=== PATIENT | male | born 1945 | race Caucasian/White ===

== ENCOUNTER → 2019-12-09 08:11 | Outpatient (BNVA) | payer MEDICARE, OTHER, SELFPAY | PROVIDERS: Family Provider Internal Medicine; PCP Internal Medicine; Visit Provider Specialist | DX: G40.909 Epilepsy, unspecified, not intractable, without status epilepticus (principal); G81.11 Spastic hemiplegia affecting right dominant side; Z86.73 Personal history of transient ischemic attack (TIA), and cerebral infarction without residual deficits | CPT/HCPCS: 99213 ==

== ENCOUNTER 2020-04-16 12:49 | Emergency (ER) | payer MEDICARE, OTHER, SELFPAY ==
--- NOTE | 2020-04-16 13:00 | CT_ITS ---
WS: [id number] CT HEAD NONCONTRAST HISTORY: fall TECHNIQUE: Contiguous axial imaging performed through the brain in 2.5 mm imaging. Bone and soft tiss ue windows. All CT scans at [facility] use at least one of these dose optimization techniq ues: automated exposure control; mA and/or kV adjustment per patient size (includes targeted exams wh ere dose is matched to clinical indication); or iterative reconstruction. DLP: 780.34 mGy.cm COMPARISON: 05/16/2018 No acute intracranial hemorrhage, midline shift or mass effect. 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 Marked dilatation of t he adjacent LEFT lateral ventricle. Smaller remote infarct RIGHT frontal lobe. Small basal ganglia la cunar near the caudate head. Ventricles: Marked dilatation of the LEFT lateral ventricle due to the prior infarct. Paranasal sinuses: As visualized are clear. Mastoid air cells: Well pneumatized. Calvarium and scalp: Skull is intact with no soft tissue edema or swelling. CT/CT head wo con* [id number] IMPRESSION: 1. No acute intracranial hemorrhage or edema. 2. 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 3. Smaller chronic infarct RIGHT frontal lobe.
--- NOTE | 2020-04-16 13:00 | CT_ITS ---
WS: [id number] CT CERVICAL SPINE HISTORY: fall TECHNIQUE: Contiguous 2.5 mm axial imaging performed through the entire cervical spine. Sagittal and coronal reformats also performed. All CT scans at [facility] use at least one of these do se optimization techniques: automated exposure control; mA and/or kV adjustment per patient size (inc ludes targeted exams where dose is matched to clinical indication); or iterative reconstruction. DLP: 626.87 mGy.cm COMPARISON: 04/19/2018 Mild straightening of the normal cervical alignment. Minimal C4 anterolisthesis. Craniocervical junct ion is normally aligned. The odontoid is intact. Multilevel moderate to severe facet joint narrowing. No acute fractures are identified. C2-C3: Severe LEFT facet joint arthritis and foraminal narrowing. C3-C4: Severe bilateral facet joint arthritis, greatest on the RIGHT with severe foraminal narrowing. C4-C5: Severe bilateral facet joint arthritis with mild central and bilateral foraminal stenosis. C5-C6: Diffuse osteophytic ridging. Osteophytes contact the ventral thecal sac. Severe RIGHT foramina l stenosis and moderate on the LEFT. C6-C7: Central and mild bilateral foraminal stenosis. C7-T1: Normal. Soft tissues are normal. Lung apices are clear. CT/CT cervical spin wo con* [id number] IMPRESSION: 1. No acute cervical spine fracture. 2. Severe multilevel facet joint arthritis with severe foraminal and central s tenosis at several levels.
--- NOTE | 2020-04-16 13:00 | XR_ITS ---
WS: [id number] XR pelvis 1-2V* [id number] REASON FOR EXAM: fall FINDINGS: Bilaterally there is moderate narrowing of the superior joint space of both hips. There is a more sig nificant narrowing of the inferior joint space of both hips. There is spurring of the superior margin of the acetabula bilaterally. No cortical disruption or focal bone lesion is identified. There are changes of degenerative spondylosis in the lower lumbar spine. 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 No fracture of the pelvis or hi ps is identified.
--- NOTE | 2020-04-16 13:00 | XR_ITS ---
WS: [id number] XR chest 1V portable [id number] REASON FOR EXAM: fall FINDINGS: Moderate ectasia and tortuosity of the thoracic aorta. Normal heart size. No active pulmonary parenchymal or pleural disease. Degenerative change in the mid and lower thoracic spine. The chest is unchanged compared to previous examination of 10/16/2007. XR/XR chest 1V portable [id number] IMPRESSION: No acute chest abnormality.
[2020-04-16 13:01] VITALS: BP 118/71; PULSE 88; RESP 18; TEMP 36.4; O2SAT 96; BMI 27.2
[2020-04-16 13:07] VITALS: O2SAT 96
--- NOTE | 2020-04-16 13:10 | PC.NURSE ---
pt has multiple abrasions and scattered bruising throughout his body. pt has wound to right knee with bleeding controlled.
--- NOTE | 2020-04-16 13:54 | PC.NURSE ---
pt to CT by stretcher with tech
[2020-04-16 14:19] LABS: INR 1.06 (0.8-1.2)
[2020-04-16 14:27] VITALS: BP 120/76; PULSE 90; O2SAT 97
--- NOTE | 2020-04-16 14:29 | ED_ITS ---
HPI - Fall General: Chief Complaint: Fall Stated Complaint: FALL-possible head injury Time Seen by Provider: 04/16/20 12:58 Source: patient Mode of arrival: ambulatory Limitations: no limitations History of Present Illness: HPI Narrative: 74-year-old male who states he had a fall earlier today. He states that he did strike the right side of his head and does have a headache. He has bruises to his chest and his right hip. He denies much pain there states his main pain is in his head neck. He rates pain 5 out of 10. He denies any loss consciousness and denies any vomiting. Denies any worsening or improving factors. Associated symptoms-after fall: Denies abdominal pain, chest pain, headache(s) or neck pain Review of Systems Const: Denies: fever(s), chills, body aches or change in appetite Eyes: Denies: blurry vision or eye discomfort ENMT: Denies: throat pain or dental pain Card: Denies: chest pain Resp: Denies: dyspnea GI: Denies: abdominal pain, nausea, vomiting or diarrhea : Denies: dysuria Musc: Denies: neck pain or back pain Skin/Breast: Denies: rash Neuro: Denies: headache(s) Psych: Denies: depression Her[place]th/Lymph: Denies: easy bruising All/Imm: Denies: urticaria PFSH ED PFSH: Family History Other CAD (coronary artery disease) Stroke Social History Smoking and tobacco status: never smoked Physical Exam Const: COMMON NORMALS: no acute distress, patient oriented x3 and healthy appearing HENMT: COMMON NORMALS: normocephalic HEAD & SCALP: normocephalic OTHER: Contusion noted to forehead. Eye: COMMON NORMALS: Equal, round and reactive pupils present and EOMs intact bilaterally PUPIL: Yes Equal, round and reactive pupils present Neck/C-Spine: COMMON NORMALS: full ROM and supple Chest: COMMONS NORMALS: normal palpation of entire chest wall OTHER: Contusion over chest with no tenderness on exam. Resp: COMMON NORMALS: normal respiratory effort, No retractions, No use of accessory muscles and clear to auscultation bilaterally AUSCULTATION: clear to auscultation bilaterally Cardio: COMMON NORMALS: regular rate, regular rhythm and No murmurs present (Cardio) RATE: regular rate RHYTHM: regular rhythm GI: COMMON NORMALS: Normal to inspection, nondistended, normoactive bowel sounds present, Soft to palpation, non-tender and no masses PALPATION: Yes Soft to palpation Extremity: COMMON NORMALS: normal to inspection and full ROM Neuro: COMMON NORMALS: patient oriented x3, moves all extremities and no focal motor deficits Psych: COMMON NORMALS: mental status grossly normal, Normal thought process present and cooperative THOUGHT PROCESS: Normal thought process present Skin: COMMON NORMALS: no rashes or lesions noted and no wounds GENERAL SKIN EXAM: no rashes or lesions noted Course Vital Signs: Vital signs: Vital Signs Temperature 97.5 F L 04/16/20 13:01 Pulse Rate 90 04/16/20 14:27 Respiratory Rate 18 04/16/20 13:01 Blood Pressure 120/76 04/16/20 14:27 Pulse Oximetry 97 04/16/20 14:27 MDM - Fall MDM Narrative: Medical decision making narrative: Patient presents here with fall with a minor head injury. He does have contusions as well. He has no signs of any fractures and able to be without any problems. Patient is stable for discharge is to follow-up with PCP in 3 to 5 days return if worsening. Lab Data: Labs: Lab Results 04/16/20 Range/Units 13:41 PT 13.90 (12.1-14.9) SECO NDS INR 1.06 (0.8-1.2) Imaging Data^: CT Head: Radiologist's impression: [address] [address] [address] Scan Report Signed Patient: Juan Carlos Canales Unit #: [id number] : 1945 Age/Sex: 74 / M ADM Date: 04/16/20 Loc: ER Room/Bed: Attending Dr: Ordering Provider/Ordering MD: Jacob Andino MD Date of Service: 04/16/20 Procedure(s): CT head wo con* [id number] Accession Number(s): [id number] Report Number: [id number] WS: [id number] CT HEAD NONCONTRAST HISTORY: fall TECHNIQUE: Contiguous axial imaging performed through the brain in 2.5 mm imaging. Bone and soft tissue windows. All CT scans at [facility] use at least one of these dose optimization techniques: automated exposure control; mA and/or kV adjustment per patient size (includes targeted exams where dose is matched to clinical indication); or iterative reconstruction. DLP: 780.34 mGy.cm COMPARISON: 05/16/2018 No acute intracranial hemorrhage, midline shift or mass effect. 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 Marked dilatation of the adjacent LEFT lateral ventricle. Smaller remote infarct RIGHT frontal lobe. Small basal ganglia lacunar near the caudate head. Ventricles: Marked dilatation of the LEFT lateral ventricle due to the prior infarct. Paranasal sinuses: As visualized are clear. Mastoid air cells: Well pneumatized. Calvarium and scalp: Skull is intact with no soft tissue edema or swelling. CT/CT head wo con* [id number] IMPRESSION: 1. No acute intracranial hemorrhage or edema. 2. 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 3. Smaller chronic infarct RIGHT frontal lobe. Other CT: Radiologist's impression: [address] [address] [address] Scan Report Signed Patient: Juan Carlos Canales Unit #: [id number] : 1945 Age/Sex: 74 / M ADM Date: 04/16/20 Loc: ER Room/Bed: Attending Dr: Ordering Provider/Ordering MD: Jacob Andino MD Date of Service: 04/16/20 Procedure(s): CT cervical spin wo con* [id number] Accession Number(s): [id number] Report Number: [id number] WS: [id number] CT CERVICAL SPINE HISTORY: fall TECHNIQUE: Contiguous 2.5 mm axial imaging performed through the entire cervical spine. Sagittal and coronal reformats also performed. All CT scans at [facility] use at least one of these dose optimization techniques: automated exposure control; mA and/or kV adjustment per patient size (includes targeted exams where dose is matched to clinical indication); or iterative reconstruction. DLP: 626.87 mGy.cm COMPARISON: 04/19/2018 Mild straightening of the normal cervical alignment. Minimal C4 anterolisthesis. Craniocervical junction is normally aligned. The odontoid is intact. Multilevel moderate to severe facet joint narrowing. No acute fractures are identified. C2-C3: Severe LEFT facet joint arthritis and foraminal narrowing. C3-C4: Severe bilateral facet joint arthritis, greatest on the RIGHT with severe foraminal narrowing. C4-C5: Severe bilateral facet joint arthritis with mild central and bilateral foraminal stenosis. C5-C6: Diffuse osteophytic ridging. Osteophytes contact the ventral thecal sac. Severe RIGHT foraminal stenosis and moderate on the LEFT. C6-C7: Central and mild bilateral foraminal stenosis. C7-T1: Normal. Soft tissues are normal. Lung apices are clear. CT/CT cervical spin wo con* [id number] IMPRESSION: 1. No acute cervical spine fracture. 2. Severe multilevel facet joint arthritis with severe foraminal and central stenosis at several levels. Xray Ortho: Radiologist's impression: [address] [address] XRay Report Signed Patient: Juan Carlos Canales Unit #: [id number] : 1945 Age/Sex: 74 / M ADM Date: 04/16/20 Loc: ER Room/Bed: Attending Dr: Ordering Provider/Ordering MD: Jacob Andino MD Date of Service: 04/16/20 Procedure(s): XR pelvis 1-2V* [id number] Accession Number(s): [id number] Report Number: [id number] WS: [id number] XR pelvis 1-2V* [id number] REASON FOR EXAM: fall FINDINGS: Bilaterally there is moderate narrowing of the superior joint space of both hips. There is a more significant narrowing of the inferior joint space of both hips. There is spurring of the superior margin of the acetabula bilaterally. No cortical disruption or focal bone lesion is identified. There are changes of degenerative spondylosis in the lower lumbar spine. 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 No fracture of the pelvis or hips is identified. CXR: Radiologist's impression: [address] [address] XRay Report Signed Patient: Juan Carlos Canales Unit #: [id number] : 1945 Age/Sex: 74 / M ADM Date: 04/16/20 Loc: ER Room/Bed: Attending Dr: Ordering Provider/Ordering MD: Jacob Andino MD Date of Service: 04/16/20 Procedure(s): XR chest 1V portable [id number] Accession Number(s): [id number] Report Number: [id number] WS: [id number] XR chest 1V portable [id number] REASON FOR EXAM: fall FINDINGS: Moderate ectasia and tortuosity of the thoracic aorta. Normal heart size. No active pulmonary parenchymal or pleural disease. Degenerative change in the mid and lower thoracic spine. The chest is unchanged compared to previous examination of 10/16/2007. XR/XR chest 1V portable [id number] IMPRESSION: No acute chest abnormality. Discharge Plan Discharge Patient Disposition: Home Clinical Impression: Closed head injury Qualifiers: Encounter type: initial encounter Qualified Code(s): S09.90XA - Unspecified injury of head, initial encounter Fall Qualifiers: Encounter type: initial encounter Qualified Code(s): W19.XXXA - Unspecified fall, initial encounter Condition: Stable Prescriptions: No Action aspirin 325 mg tablet 325 mg PO DAILY RF: 0 multivitamin Capsule 1 cap PO DAILY RF: 0 hydrocodone-acetaminophen [[place]] 5-325 mg tablet 1 tab PO BID PRN (Reason: Pain) RF: 0 amitriptyline 25 mg tablet 25 mg PO DAILY Qty: 90 RF: 1 clopidogrel [Plavix] 75 mg tablet 75 mg PO DAILY Qty: 90 RF: 3 lamotrigine [Lamictal] 200 mg tablet 200 mg PO BID Qty: 180 RF: 3 venlafaxine [Effexor XR] 75 mg capsule,extended release 24hr 75 mg PO DAILY Qty: 90 RF: 3 rosuvastatin 40 mg tablet 40 mg PO DAILY RF: 0 Discharge Orders: Discharge Order (Routine); Ordered 04/16/20 Ordered By: Jacob Andino Referrals: Rich Sotelo DO [Primary Care Provider] - 1-3 days Discharge Diet: Advance as tolerated Discharge Activity: Resume usual activity Patient Instructions: Minor Head Injury (ED) Coding Level of Care Code ED Line Maintainer Section for Sam Smith
[2020-04-16 14:45] VITALS: BP 129/74; PULSE 88; O2SAT 97
--- NOTE | 2020-04-16 14:45 | PC.NURSE ---
wound dressed on right elbow and right knee. dressed with 4*4 's and kerlix.
== END 2020-04-16 14:45 | disposition home or self-care (01) ==
PROVIDERS: Emergency Provider Emergency Medicine; Family Provider Internal Medicine; PCP Internal Medicine
DX: S09.8XXA Other specified injuries of head, initial encounter (principal); Z79.82 Long term (current) use of aspirin; Z79.02 Long term (current) use of antithrombotics/antiplatelets; W19.XXXA Unspecified fall, initial encounter
CPT/HCPCS: 12345; 36415; 70450; 71045; 72125; 72170; 85610; 99282; 99283

== ENCOUNTER 2020-11-08 22:30 | Emergency (ER) | payer MEDICARE, OTHER, SELFPAY ==
[2020-11-08 22:40] VITALS: BP 151/91; PULSE 78; RESP 18; TEMP 36.1; O2SAT 95; BMI 25.8
--- NOTE | 2020-11-08 22:49 | CTR_ITS ---
PROCEDURE INFORMATION: Exam: CT Head Without Contrast Exam date and time: 11/08/2020 10:50 PM Age: 75 years old Clinical indication: Injury or trauma; Blunt trauma (contusions or hematomas) and laceration; Without loss of consciousness; Without residual foreign body; Injury details: H/o subdural and CVA; Patient HX: Walking fall - lac to L scalp - denies loc; Additional info: Head injury TECHNIQUE: Imaging protocol: Computed tomography of the head without contrast. Radiation optimization: All CT scans at this facility use at least one of these dose optimization techniques: automated exposure control; mA and/or kV adjustment per patient size (includes targeted exams where dose is matched to clinical indication); or iterative reconstruction. COMPARISON: CT head wo con* [id number] 04/16/2020 1:54 PM RADIATION DOSE METRICS: Total DLP (mGy-cm): 888.65 FINDINGS: Brain: Large area of encephalomalacia in the left MCA distribution as before. Continued small focus of encephalomalacia in the inferior aspect of the anterior right frontal lobe as well. Slight chronic white matter disease still present. No apparent edema in the brain. No hemorrhage. Cerebral ventricles: Continued negative mass effect on the left lateral ventricle and mild enlargement of the 3rd and right lateral ventricles compared to the normal 4th ventricle. Bones/joints: Unremarkable. No acute fracture. Paranasal sinuses: Continued minimal mucosal thickening in some of the paranasal sinuses. Still no air-fluid levels. Mastoid air cells: Slight inferior right mastoid disease still suspected. Orbital cavity: Prior left eye surgery again evident. Soft tissues: Interval left frontal scalp injury associated with a few small gas bubbles. Interval disappearance of the stranding from the right parietal scalp. CT/CT head wo con* [id number] IMPRESSION: 1. No acute intracranial findings. Chronic ischemic changes again evident. 2. Interval left frontal scalp injury. 3. Slight inferior right mastoid disease still suspected. Radiation Dose CTDIVOL = (mGy): DLP = 888.65 (mGy-cm)
[2020-11-09 00:15] VITALS: BP 166/88; PULSE 63; RESP 18; O2SAT 94
--- NOTE | 2020-11-09 02:47 | W.ED.HEATRA ---
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 He has chronic right-sided weakness. He still takes Plavix. He presents after falling and striking his head on a door at home. This was from a standing position. He was not knocked out. He recovered quickly, and has a minimal headache currently. He does have mild swelling to the scalp and an abrasion to the left frontotemporal region of his head. Bleeding is essentially controlled. He has experienced no symptoms besides a mild headache. Complaint: head injury Onset (ago): minute(s) Mechanism of Injury: fall Place: home Loss of Consciousness: no Location of injury: temporal Severity: moderate Quality: aching Radiation: none Other Injuries: none Context: other Associated symptoms: Deny confusion, nausea, neck pain, numbness, syncope, vertigo, visual changes, vomiting or weakness Review of Systems Const: Denies: fever(s) Eyes: Reports: change in vision (Actually noted an improvement in vision) ENMT: Denies: throat pain or swelling of lips/tongue Card: Denies: chest pain or syncope Resp: Denies: dyspnea GI: Denies: nausea or vomiting Musc: Denies: neck pain Neuro: Denies: vertigo or confusion PFSH ED PFSH: Family History Other CAD (coronary artery disease) Stroke Social History Smoking and tobacco status: never smoked Physical Exam Const: COMMON NORMALS: no acute distress, alert and well nourished GENERAL APPEARANCE: cooperative and frail appearing (mildly) Eye: ALIGNMENT: Yes alignment normal Resp: COMMON NORMALS: normal respiratory effort, No use of accessory muscles and clear to auscultation bilaterally AUSCULTATION: clear to auscultation bilaterally Cardio: COMMON NORMALS: regular rate and regular rhythm RATE: regular rate RHYTHM: regular rhythm GI: COMMON NORMALS: Normal to inspection, nondistended, normoactive bowel sounds present Neuro: SENSORIUM/ORIENTATION: Yes alert SPEECH: abnormal speech (chronic, not new) MOTOR EXAM: Other motor observations present (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 Small scalp laceration repaired with Dermabond. He is at his baseline behavior stall[place], and has minimal to no symptoms of the injury currently. He will be allowed discharge back home with his son. Discharge Plan Discharge Patient Disposition: Home Clinical Impression: Contusion of scalp Qualifiers: Encounter type: initial encounter Qualified Code(s): S00.03XA - Contusion of scalp, initial encounter Laceration of scalp Qualifiers: Encounter type: initial encounter Qualified Code(s): S01.01XA - Laceration without foreign body of scalp, initial encounter Condition: Stable Prescriptions: No Action aspirin 325 mg tablet 325 mg PO DAILY RF: 0 multivitamin Capsule 1 cap PO DAILY RF: 0 hydrocodone-acetaminophen [[place]] 5-325 mg tablet 1 tab PO BID PRN (Reason: Pain) RF: 0 lamotrigine [Lamictal] 200 mg tablet 200 mg PO BID Qty: 180 RF: 3 clopidogrel 75 mg tablet See Rx Instructions .ROUTE .COMPLEX Qty: 90 RF: 2 venlafaxine 75 mg capsule,extended release 24hr See Rx Instructions .ROUTE .COMPLEX Qty: 90 RF: 2 amitriptyline 25 mg tablet See Rx Instructions .ROUTE .COMPLEX Qty: 90 RF: 0 rosuvastatin 40 mg tablet 40 mg PO DAILY RF: 0 Discharge Orders: Discharge ED (Routine); Ordered 11/08/20 Ordered By: Manan Leslie Referrals: Rich Sotelo, [Primary Care Provider] - 4-7 days Patient Instructions: Scalp Laceration, Scalp Contusion in Adults (ED) Activity Restrictions/Additional Instructions: Keep area dry for 24 hours, then may wash with soap and water. Return to the ER for worsening mental status, headache, vomiting, any other concerning symptoms. Coding Level of Care Code ED Culinary Manager for Chg Fwd Exam Problem Focused
== END 2020-11-09 00:15 | disposition home or self-care (01) ==
PROVIDERS: Emergency Provider Emergency Medicine; PCP Internal Medicine
DX: S01.01XA Laceration without foreign body of scalp, initial encounter (principal); S00.03XA Contusion of scalp, initial encounter; Z79.02 Long term (current) use of antithrombotics/antiplatelets; Z79.82 Long term (current) use of aspirin; Z86.73 Personal history of transient ischemic attack (TIA), and cerebral infarction without residual deficits; W18.30XA Fall on same level, unspecified, initial encounter
CPT/HCPCS: 12001; 70450; 99282

== ENCOUNTER → 2020-12-14 08:15 | Outpatient (BNVA) | payer MEDICARE, OTHER, SELFPAY | PROVIDERS: PCP Internal Medicine; Visit Provider Specialist | DX: G40.909 Epilepsy, unspecified, not intractable, without status epilepticus (principal); G40.309 Generalized idiopathic epilepsy and epileptic syndromes, not intractable, without status epilepticus; I69.351 Hemiplegia and hemiparesis following cerebral infarction affecting right dominant side; I69.320 Aphasia following cerebral infarction | CPT/HCPCS: 99213 ==

== ENCOUNTER 2021-11-26 01:11 | Emergency (ER) | payer MEDICARE, OTHER, SELFPAY ==
[2021-11-26] VITALS (10 sets, daily range): BP systolic 163–186; BP diastolic 92–118; PULSE 79–92; RESP 14–19; TEMP 37.1; O2SAT 95–99; BMI 25.8
--- NOTE | 2021-11-26 01:16 | W.ED.FALL ---
HPI - Fall General: Chief Complaint: Fall Stated Complaint: fall Time Seen by Provider: 11/26/21 01:16 History of Present Illness: Mr. Canales is a 76-year-old gentleman with history of seizure disorder, history of stroke, on antiplatelet agents who presents to the emergency department due to fall with head injury and hand surgery. The patient himself has some degree of speech difficulty and so history is mildly limited. Apparently he thinks his rope got caught on something and he fell hitting his head on the wall and his hand on may be a thermostat. Unclear downtime or loss of consciousness. Currently mostly complaining of head pain and hand pain. Moderate intensity worse with movement. No other specific changes in health, exacerbating, or alleviating factors identified. 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 No aguilar signs or raccoon eyes, developing left periorbital ecchymosis. No septal hematoma the right there is swelling to bridge of nose. Eye: COMMON NORMALS: conjunctivae normal CONJUNCTIVA: Yes conjunctivae normal SCLERA: sclerae normal Neck/C-Spine: COMMON NORMALS: supple GENERAL: Yes trachea midline Resp: COMMON NORMALS: normal respiratory effort EFFORT & INSPECTION: Yes able to speak in complete sentences Cardio: COMMON NORMALS: regular rate and regular rhythm RATE: regular rate RHYTHM: regular rhythm GI: COMMON NORMALS: Soft to palpation PALPATION: Yes Soft to palpation, Yes Tenderness to palpation present (GI), No Guarding due to palpation present (GI) and No Rigid due to palpation PERCUSSION: normal to percussion Extremity: NARRATIVE EXTREMITY EXAM: Left hand with obvious deformity to thumb and laceration on the palmar aspect of the MCP. Distal CMS intact. Neuro: COMMON NORMALS: moves all extremities SENSORIUM/ORIENTATION: Yes alert and No Orientation impaired Psych: COMMON NORMALS: mental status grossly normal and Normal thought process present THOUGHT PROCESS: Normal thought process present Procedures Laceration Laceration 1: Site: face Side (If applicable): left Size (cm): 3 Description: linear Depth: simple, single layer Local Anesthetic: lidocaine 2% and with epi Amount of anesthesia used (mL): 6 Pre-repair: wound explored, irrigated extensively and deep structures intact Skin layer closed with: vicryl Size (cm): 4-0 Number of sutures: 3 Laceration 2: Site: hand Side (If applicable): left Size (cm): 2 Description: linear Depth: simple, single layer Local Anesthetic: lidocaine 2% and with epi Amount of anesthesia used (mL): 2 Pre-repair: wound explored and irrigated extensively Skin layer closed with: other (prolene) Size (cm): 3-0 Number of sutures: 3 Technique: simple, interrupted Orthopedic Joint Reduction Joint #1: Time Out Performed: Yes Side: left Joint Reduction Location: other Analgesia: procedural sedation Technique used: traction/counter-traction Post-reduction neuro exam: intact Post-reduction vascular: intact Post Reduction X-Ray Obtained: Yes Post Reduction X-Ray Results: reduced Splint Applied: Yes Procedural Sedation Preparation: monitoring specialist applied, pulse oximeter, supplemental O2 applied, suction/airway equipment at bedside and IV secured IV Propofol dose (mg): 50 Patient Tolerated Procedure: well Complications: none Course ED course: - Patient was seen and evaluated by me at bedside - Patient placed on cardiac monitors, IV access obtained - Initial evaluation notable for exam as above. Limited history as no family at bedside initially. Given patient's questionable reliability and history of stroke as well as age and use of anticoagulation I do feel that more extensive advanced imaging is needed. - Labs and xrays personally interpreted by me -Patient's Tdap up-to-date - Labs notable for no leukocytosis, normal hemoglobin. Electrolyte panel without acute abnormality. Delta troponin negative. - Imaging notable for left proximal first phalanx dislocation. CT imaging without intracranial hemorrhage, cervical spine injury, or acute internal injury of the torso. - Discussed with Dr. Ruiz of hand surgery at [facility] in [place] after discussion with Dr. Jade of our orthopedic surgery service. - Patient consented for procedural sedation and closed reduction. Propofol administered as in procedure note. Patient tolerated procedure well and fully recovered from procedural sedation successfully. Wound loosely closed after copious irrigation. Thumb spica well-padded applied for bracing. - Upon serial reexamination after treatment the patient was improved. Patient certainly had progression of left periorbital ecchymosis during ED stay. - Discussed results of ED evaluation and follow-up plan with hand surgery with the patient and family. - Based on patient history, evaluation, and testing as interpreted the most likely cause of the patient's condition is fall with head injury and laceration x2 including open dislocation of left thumb with successful reduction after procedural sedation. - The results of ED evaluation were discussed with the patient and his family including prescriptions and/or symptomatic cares (if applicable) including appropriate and responsible use, I discussed cautions with opioids extensively, I discussed followup plan, and return precautions. The patient verbalized understanding and felt safe for discharge. - Patient discharged in satisfactory condition. Note: Click bubbles or prepopulated cerna in note writing are used for assistance with data collection and billing and are inherently more limited than narrative and other text portions of this note. Please use narrative for additional clinical history and defer to narrative/free test for any case of contradictory information. If information appears in only free text or click bubble it should be considered present or absent as reported. Please contact note screenplay writer for clarifications of clinical information or contradictory information. MDM is a brief summary, contradictory or erroneous seeming information should be clarified and full note should be reviewed. Vital Signs: Vital signs: Vital Signs Temperature 98.7 F 11/26/21 01:17 Pulse Rate 92 11/26/21 06:06 Respiratory Rate 17 11/26/21 06:06 Blood Pressure 163/100 11/26/21 06:06 Pulse Oximetry 97 11/26/21 06:06 MDM - Fall Medical Decision Making 76-year-old gentleman with history of stroke on aspirin and Plavix presenting due to fall with head injury and hand injury. Laceration on left eyebrow region repaired with 3 sutures. Procedural sedation for open dislocation reduction of left thumb. Post reduction CMS intact. CT scans negative for other acute trauma. Patient satisfactory for discharge. He did receive a dose of Ancef while in the emergency department and plan to continue outpatient on Keflex with follow-up with hand surgery Dr. Ruiz in [place]. Satisfactory for outpatient management, patient does live with family and can be watched closely. Medical Records I reviewed the patient's medical records. Lab Data I reviewed the patient's lab results. : 11/26/21 00:58 11/26/21 00:58 Radiology Impressions Cervical Spine CT 11/26/21 01:20 IMPRESSION: 1. No definite acute fracture or subluxation by CT. 2. Other findings discussed above. Chest/Abdomen/Pelvis CT 11/26/21 01:20 IMPRESSION: 1. No acute pathology in the chest. 2. Ectatic ascending aorta. IMPRESSION: 1. No acute pathology in the abdomen or pelvis. 2. Ectatic infrarenal abdominal aorta. Head CT 11/26/21 01:20 IMPRESSION: 1. No acute intracranial hemorrhage or mass effect. 2. Changes of microvascular disease, and old infarcts, details above. 3. No definite acute infarct by CT, see above. 4. Other findings discussed above. Hand X-Ray 11/26/21 05:27 IMPRESSION: Successful reduction of left thumb dislocation. No fracture identified. Laboratory Results WBC 7.8 10^3/uL (4.0-10.0) 11/26/21 00:58 RBC 5.30 10^6/uL (4.1-5.3) 11/26/21 00:58 Hgb 16.6 g/dL (11.7-16.6) 11/26/21 00:58 Hct 50.7 % (42.0-52.0) 11/26/21 00:58 MCV 95.7 fl (80-94) H 11/26/21 00:58 MCH 31.3 pg (28.0-34.0) 11/26/21 00:58 MCHC 32.7 g/dL (30.0-36.0) 11/26/21 00:58 RDW 12.7 % (12.1-15.1) 11/26/21 00:58 Plt Count 229 10^3/cmm (130-400) 11/26/21 00:58 MPV 9.6 fL (7.4-10.4) 11/26/21 00:58 Neut % (Auto) 37.6 % 11/26/21 00:58 Lymph % (Auto) 49.4 % 11/26/21 00:58 [place] % (Auto) 10.0 % 11/26/21 00:58 Eos % (Auto) 2.3 % 11/26/21 00:58 Baso % (Auto) 0.4 % 11/26/21 00:58 Neut # (Auto) 2.95 10^3/uL (1.8-7.7) 11/26/21 00:58 Lymph # (Auto) 3.9 10^3/uL (0.8-4.8) 11/26/21 00:58 [place] # (Auto) 0.8 10^3/uL (0.2-0.9) 11/26/21 00:58 Eos # (Auto) 0.2 10^3/uL (0.0-0.8) 11/26/21 00:58 Baso # (Auto) 0.0 10^3/uL (0.0-0.1) 11/26/21 00:58 Nucleated RBC % (auto) 0 % 11/26/21 00:58 Nucleated RBCs # 0.0 /100WBC 11/26/21 00:58 Sodium 139 mmol/L (136-145) 11/26/21 00:58 Potassium 3.5 mmol/L (3.5-5.1) 11/26/21 00:58 Chloride 99 mmol/L (98-107) 11/26/21 00:58 Carbon Dioxide 28 mmol/L (22-29) 11/26/21 00:58 Anion Gap 15.5 (5-19) 11/26/21 00:58 BUN 16 mg/dL (8-23) 11/26/21 00:58 Creatinine 0.9 mg/dL (0.7-1.2) 11/26/21 00:58 GFR Calculation Not Reportable 11/26/21 00:58 Glucose 68 mg/dL (65-115) 11/26/21 00:58 Calculated Osmolality 287 mOsm/kg (285-295) 11/26/21 00:58 Calcium 9.8 mg/dL (8.5-10.5) 11/26/21 00:58 Total Bilirubin 0.5 mg/dL (0.15-1.2) 11/26/21 00:58 AST 31 U/L (0-40) 11/26/21 00:58 ALT 23 U/L (0-41) 11/26/21 00:58 Alkaline Phosphatase 103 IU/L (40-130) 11/26/21 00:58 Troponin T Baseline 27 ng/L (0-15) H 11/26/21 00:58 Troponin T 120 Minute 25.70 ng/L (0-15) H 11/26/21 02:49 Delta Troponin T -1.30 ABS# (0-10) L 11/26/21 02:49 Total Protein 8.1 g/dL (6.6-8.7) 11/26/21 00:58 Albumin 5.0 g/dL (3.5-5.2) 11/26/21 00:58 Globulin 3.1 g/dL (1.3-4.6) 11/26/21 00:58 Discharge Plan Discharge Patient Disposition: Home Clinical Impression: Fall, Head injuries, Facial laceration, Open dislocation of left thumb Condition: Stable Prescriptions: New oxycodone 5 mg tablet 5 mg PO Q6H PRN (Reason: pain) Qty: 14 0RF cephalexin 500 mg tablet 500 mg PO Q6H 10 Days Qty: 40 0RF Miralax 17 gram/dose powder 17 g PO DAILY Qty: 119 0RF Rx Instructions: While taking opioids (oxycodone) No Action aspirin 325 mg tablet 325 mg PO DAILY 0RF multivitamin Capsule 1 cap PO DAILY 0RF hydrocodone-acetaminophen [[place]] 5-325 mg tablet 1 tab PO BID PRN (Reason: Pain) 0RF amitriptyline 25 mg tablet See Rx Instructions .ROUTE .COMPLEX Qty: 90 3RF Dose Instruction: TAKE 1 TABLET BY MOUTH EVERY DAY Rx Instructions: TAKE 1 TABLET BY MOUTH EVERY DAY clopidogrel 75 mg tablet 75 mg PO DAILY Qty: 30 10RF Rx Instructions: Must have appointment for future refills. lamotrigine 200 mg tablet See Rx Instructions .ROUTE .COMPLEX Qty: 180 0RF Dose Instruction: TAKE 1 TABLET BY MOUTH TWICE DAILY Rx Instructions: TAKE 1 TABLET BY MOUTH TWICE DAILY venlafaxine 75 mg capsule,extended release 24hr See Rx Instructions .ROUTE .COMPLEX Qty: 30 0RF Dose Instruction: TAKE 1 CAPSULE BY MOUTH EVERY DAY MUST MAKE APPOINTMENT FOR FUTURE REFILLS Rx Instructions: TAKE 1 CAPSULE BY MOUTH EVERY DAY MUST MAKE APPOINTMENT FOR FUTURE REFILLS rosuvastatin 40 mg tablet 40 mg PO DAILY 0RF Discharge Orders: Discharge ED (Routine); Ordered 11/26/21 Ordered By: Jose Rafael Westbrook Referrals: Rich Sotelo, [Primary Care Provider] - Discharge Diet: Usual diet Discharge Activity: Increase activity as tolerated Patient Instructions: Care For Your Stitches (ED), Laceration (ED), Head Injury (ED), Procedural Sedation (ED), Finger Dislocation (ED), Opioid Safety Activity Restrictions/Additional Instructions: Thank you for visiting the emergency department. You were seen evaluated for fall. You were noted to have multiple injuries including a facial laceration and significant contusion. This was repaired with sutures that need to be removed in 7 to 10 days. You may return to this emergency department for removal or follow-up with your primary care provider. Additionally you were found to have dorsal lateral dislocation of the first MCP joint which was reduced with procedural sedation. There is a laceration of the skin concerning for open joint dislocation and therefore you require follow-up with orthopedic hand surgery. You will be also continued on antibiotics. I spoke with Dr. Ruiz. He is affiliated with [facility]. Please call to schedule follow-up appointment. Please return to the emergency department for anything that you are concerned about and feel needs emergency department evaluation. 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
--- NOTE | 2021-11-26 01:20 | CTR_ITS ---
PROCEDURE INFORMATION: Exam: CT Head Without Contrast Exam date and time: 11/26/2021 2:27 AM Age: 76 years old Clinical indication: Injury or trauma; Fall; Blunt trauma (contusions or hematomas) and laceration; Without residual foreign body; Forehead; Patient HX: Patient fell at home and hit head against thermostat. Laceration to left eyebrow. History of left side stroke. Takes plavix. TECHNIQUE: Imaging protocol: Computed tomography of the head without contrast. Radiation optimization: All CT scans at this facility use at least one of these dose optimization techniques: automated exposure control; mA and/or kV adjustment per patient size (includes targeted exams where dose is matched to clinical indication); or iterative reconstruction. COMPARISON: CT head wo con* [id number] 11/08/2020 11:09 PM RADIATION DOSE METRICS: Total DLP (mGy-cm): 887.18 FINDINGS: Brain: No acute intracranial hemorrhage or mass effect. There is decreased attenuation in the periventricular white matter, likely from microvascular disease. As before, large old infarct in the left middle cerebral artery distribution. Small old infarct in the lateral right frontal lobe, unchanged. No definite acute infarct by CT. MRI could be more sensitive/specific for detection, as clinically directed. Cerebral ventricles: Ex vacuo enlargement of the left lateral ventricle, stable. Ventricle size is otherwise normal for age. Paranasal sinuses: Included paranasal sinuses are essentially clear. Mastoid air cells: No significant acute finding. Vasculature: Vascular calcifications in the internal carotid and vertebral basilar systems. Bones/joints: No definite acute skull fracture. Soft tissues: Evidence for soft tissue injury/scalp hematoma in the left frontal/supraorbital region. CT/CT head wo con* [id number] IMPRESSION: 1. No acute intracranial hemorrhage or mass effect. 2. Changes of microvascular disease, and old infarcts, details above. 3. No definite acute infarct by CT, see above. 4. Other findings discussed above.
--- NOTE | 2021-11-26 01:20 | CTR_ITS ---
PROCEDURE INFORMATION: Exam: CT Cervical Spine Without Contrast Exam date and time: 11/26/2021 2:30 AM Age: 76 years old Clinical indication: Injury or trauma; Fall; Blunt trauma; Patient HX: Patient fell at home and struck head against thermostat. TECHNIQUE: Imaging protocol: Computed tomography images of the cervical spine without contrast. Radiation optimization: All CT scans at this facility use at least one of these dose optimization techniques: automated exposure control; mA and/or kV adjustment per patient size (includes targeted exams where dose is matched to clinical indication); or iterative reconstruction. COMPARISON: CT cervical spin wo con* [id number] 04/16/2020 1:57 PM RADIATION DOSE METRICS: Total DLP (mGy-cm): 548.68 FINDINGS: Bones/joints: On axial CT images, no definite acute fracture is visible. Sagittal and coronal reconstructions show no acute fracture or subluxation. Moderate to severe facet joint arthritis at multiple levels. Discs/Spinal canal/Neural foramina: Mild to moderate degenerative disc changes at several levels. No definite/significant disc herniation by CT, MRI could be more sensitive if clinically indicated. Lungs: No significant acute finding in the upper lungs. CT/CT cervical spin wo con* [id number] IMPRESSION: 1. No definite acute fracture or subluxation by CT. 2. Other findings discussed above.
--- NOTE | 2021-11-26 01:20 | XRR_ITS ---
PROCEDURE INFORMATION: Exam: XR Left Hand Exam date and time: 11/26/2021 1:44 AM Age: 76 years old Clinical indication: Injury or trauma; Fall; Dislocation; Left; Patient HX: Patient fell at home against a wall and hit hand on thermostat. Thumb appears dislocated with open fracture on anterior side of hand. TECHNIQUE: Imaging protocol: XR Left hand. Views: 3 or more views. COMPARISON: No relevant prior studies available. FINDINGS: Bones/joints: There is dorsolateral dislocation of the 1st MCP joint. No fracture identified. There is moderate degenerative changes of the 1st CMC joint, manifested by joint space narrowing subchondral sclerosis and periarticular osteophytes. Soft tissues: Normal. XR/XR hand LT min 3V* [id number] IMPRESSION: Left thumb dislocation, as described above.
--- NOTE | 2021-11-26 01:20 | CTR_ITS ---
PROCEDURE INFORMATION: Exam: CT Chest Without Contrast; Diagnostic Exam date and time: 11/26/2021 2:34 AM Age: 76 years old Clinical indication: Injury or trauma; Fall; Generalized; Blunt trauma (contusions or hematomas); Patient HX: Patient fell at home and struck head against thermostat. Takes plavix due to prior stroke. Denies any pain to torso though patient is somewhat limited historian. TECHNIQUE: Imaging protocol: Diagnostic computed tomography of the chest without contrast. Radiation optimization: All CT scans at this facility use at least one of these dose optimization techniques: automated exposure control; mA and/or kV adjustment per patient size (includes targeted exams where dose is matched to clinical indication); or iterative reconstruction. COMPARISON: CR XR chest 1V portable [id number] 04/16/2020 1:22 PM RADIATION DOSE METRICS: Total DLP (mGy-cm): 2605.31 FINDINGS: Lungs: No consolidation. Bilateral dependent atelectasis noted. Tiny calcified granulomas are seen bilaterally. Pleural spaces: Unremarkable. No pneumothorax. No pleural effusion. Heart: Mildly enlarged heart. Coronary atherosclerotic calcifications seen. No pericardial effusion. Lymph nodes: There is a small calcified lymph nodes in the right hilar region, likely sequela of previous granulomatous disease. Vasculature: Mild diffuse atherosclerotic disease is present. Ectatic ascending aorta measuring 4.0 cm in diameter. Bones/joints: Degenerative changes of the spine seen. Surgical changes in the left proximal humerus noted. Soft tissues: Unremarkable. PROCEDURE INFORMATION: Exam: CT Abdomen And Pelvis Without Contrast Exam date and time: 11/26/2021 2:34 AM Age: 76 years old Clinical indication: Injury or trauma; Fall; Generalized; Blunt trauma (contusions or hematomas); Patient HX: Patient fell at home and struck head against thermostat. Takes plavix due to prior stroke. Denies any pain to torso though patient is somewhat limited historian. TECHNIQUE: Imaging protocol: Computed tomography of the abdomen and pelvis without contrast. Radiation optimization: All CT scans at this facility use at least one of these dose optimization techniques: automated exposure control; mA and/or kV adjustment per patient size (includes targeted exams where dose is matched to clinical indication); or iterative reconstruction. COMPARISON: CR XR pelvis 1-2V* [id number] 04/16/2020 1:22 PM RADIATION DOSE METRICS: Total DLP (mGy-cm): 2605.31 FINDINGS: Liver: Normal. No mass. Gallbladder and bile ducts: Normal. No calcified stones. No ductal dilation. Pancreas: Normal. No ductal dilation. Spleen: There is tiny calcific densities scattered throughout the spleen, likely sequela of previous granulomatous disease. The spleen is otherwise unremarkable. Adrenal glands: Normal. No mass. Kidneys and ureters: Normal. No hydronephrosis. Stomach and bowel: Unremarkable. No obstruction. No mucosal thickening. Appendix: No evidence of appendicitis. Intraperitoneal space: Unremarkable. No free air. No significant fluid collection. Vasculature: Moderate diffuse atherosclerotic disease is present. Ectatic infrarenal abdominal aorta measuring up to 3.3 cm in diameter. Lymph nodes: Unremarkable. No enlarged lymph nodes. Urinary bladder: Unremarkable as visualized. Reproductive: The prostate is enlarged. Bones/joints: Degenerative changes of the spine seen. Is mild degenerative changes of the hip joints seen. Soft tissues: Unremarkable. CT/CT chest abd pel wo con IMPRESSION: 1. No acute pathology in the chest. 2. Ectatic ascending aorta. IMPRESSION: 1. No acute pathology in the abdomen or pelvis. 2. Ectatic infrarenal abdominal aorta.
--- NOTE | 2021-11-26 01:21 | ECG_ITS ---
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 Measurements Intervals [place] Rate: 83 P: 45 [place]: 180 QRS: 28 QRSD: 92 T: 76 QT: 372 QTc: 437 Interpretive Statements SINUS RHYTHM No previous ECG available for comparison Electronically Signed On 11-26-2021 16:21:21 CDT by Sejal Gibson M.D. [email or web address]
[2021-11-26 01:35] LABS: Basophils % 0.4 %; Eosinophils # 0.2 10^3/uL (0.0-0.8); Eosinophils % 2.3 %; Hematocrit 50.7 % (42.0-52.0); Hemoglobin 16.6 g/dL (11.7-16.6); Lymphocytes # 3.9 10^3/uL (0.8-4.8); Lymphocytes % 49.4 %; Mean Corpuscular HGB Conc 32.7 g/dL (30.0-36.0); Mean Corpuscular Hemoglobin 31.3 pg (28.0-34.0); Mean Corpuscular Volume 95.7 fl (80-94); Mean Platelet Volume 9.6 fL (7.4-10.4); Monocytes # 0.8 10^3/uL (0.2-0.9); Neutrophils # 2.95 10^3/uL (1.8-7.7); Neutrophils % 37.6 %; Nucleated Red Blood Cells % 0 %; Platelet Count 229 10^3/cmm (130-400); Red Cell Distribution Width 12.7 % (12.1-15.1); White Blood Count 7.8 10^3/uL (4.0-10.0)
[2021-11-26 01:53] LABS: Alanine Aminotransferase 23 U/L (0-41); Alkaline Phosphatase 103 IU/L (40-130); Anion Gap 15.5 (5-19); Aspartate Amino Transferase 31 U/L (0-40); Blood Urea Nitrogen 16 mg/dL (8-23); Calcium 9.8 mg/dL (8.5-10.5); Carbon Dioxide 28 mmol/L (22-29); Chloride 99 mmol/L (98-107); Creatinine Clr Calc Pharmacy 74.3349; Globulin 3.1 g/dL (1.3-4.6); Glucose 68 mg/dL (65-115); Osmolality Calculated 287 mOsm/kg (285-295); Potassium 3.5 mmol/L (3.5-5.1); Sodium 139 mmol/L (136-145); Total Bilirubin 0.5 mg/dL (0.15-1.2); Total Protein 8.1 g/dL (6.6-8.7)
[2021-11-26 01:54] LABS: Troponin(5th) Baseline 27 ng/L (0-15)
[2021-11-26] MEDS: morphine 4 mg/mL SDV 1 mL IVP (02:15)
[2021-11-26] MEDS: sodium chloride 0.9% 1,000 ML 30 ML IV (04:47)
[2021-11-26] MEDS: propofol 10 mg/mL SDV 20 mL IVP (05:20)
--- NOTE | 2021-11-26 05:27 | XRR_ITS ---
PROCEDURE INFORMATION: Exam: XR Left Hand Exam date and time: 11/26/2021 5:28 AM Age: 76 years old Clinical indication: Injury or trauma; Fall; Dislocation; Finger; Left; Thumb; Patient HX: Check S/P reduction; Additional info: Post reduction TECHNIQUE: Imaging protocol: XR Left hand. Views: 3 or more views. COMPARISON: CR (UP EX, ) 11/26/2021 1:44 AM FINDINGS: Bones/joints: Interval successful reduction of left thumb dislocation. No fracture identified. Soft tissues: Swelling of the thumb soft tissues is present. XR/XR hand LT 2V [id number] IMPRESSION: Successful reduction of left thumb dislocation. No fracture identified.
== END 2021-11-26 08:07 | disposition home or self-care (01) ==
PROVIDERS: Emergency Provider Emergency Medicine; PCP Internal Medicine
DX: S01.112A Laceration without foreign body of left eyelid and periocular area, initial encounter (principal); S61.412A Laceration without foreign body of left hand, initial encounter; S63.115A Dislocation of metacarpophalangeal joint of left thumb, initial encounter; W01.198A Fall on same level from slipping, tripping and stumbling with subsequent striking against other object, initial encounter; I69.320 Aphasia following cerebral infarction; G40.409 Other generalized epilepsy and epileptic syndromes, not intractable, without status epilepticus; Z79.02 Long term (current) use of antithrombotics/antiplatelets
CPT/HCPCS: 12001; 12013; 26700; 70450; 71250; 72125; 73120; 73130; 74176; 80053; 84484; 85025; 93005; 96365; 96375; 99152; 99285; J0690; J2270; J2704; J7030

== ENCOUNTER 2022-02-01 05:28 | Emergency (ER) | payer MEDICARE, OTHER, SELFPAY ==
--- NOTE | 2022-02-01 05:28 | XRR_ITS ---
PROCEDURE INFORMATION: Exam: XR Right Ankle Exam date and time: 02/01/2022 5:42 AM Age: 76 years old Clinical indication: Patient HX: Fell this am pain to ankle; Additional info: Injury TECHNIQUE: Imaging protocol: Radiologic exam of the Right ankle. Views: 3 or more views. COMPARISON: No relevant prior studies available. FINDINGS: Bones/joints: Displaced distal fibular fracture with overlying soft tissue edema. Soft tissues: See Bones/joints finding. XR/XR ankle RT min 3V* [id number] IMPRESSION: Displaced distal fibular fracture with overlying soft tissue edema.
[2022-02-01 05:30] VITALS: BP 144/11; PULSE 74; RESP 17; TEMP 36.6; O2SAT 98; BMI 24.3
--- NOTE | 2022-02-01 05:34 | W.ED.FALL ---
HPI - Fall General: Chief Complaint: Fall Stated Complaint: FALL Time Seen by Provider: 02/01/22 05:28 Source: patient and EMS Mode of arrival: EMS Limitations: altered mental status History of Present Illness: 76-year-old male has a history of dementia who is here after a fall. Per EMS patient had fell unwitnessed but son and found him patient does not remember exactly what happened due to his dementia he does have swelling along with pain to his right ankle he has not been able to bear weight on that ankle. He denies pain elsewhere he has no other signs of injuries at this time. He rates his pain a 5 out of 10. Associated symptoms-after fall: Denies abdominal pain, chest pain or headache(s) Review of Systems Const: Denies: fever(s), chills, body aches or change in appetite Eyes: Denies: blurry vision or eye discomfort ENMT: Denies: throat pain or dental pain Card: Denies: chest pain Resp: Denies: dyspnea GI: Denies: abdominal pain, nausea, vomiting or diarrhea : Denies: dysuria Musc: Reports: extremity pain Skin/Breast: Denies: rash Neuro: Denies: headache(s) Psych: Denies: depression Herberth/Lymph: Denies: easy bruising All/Imm: Denies: urticaria PFSH ED PFSH: Medical History Aphasia as late effect of stroke CVA (cerebral vascular accident) 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 Family History Other CAD (coronary artery disease) Stroke Social History Smoking and tobacco status: never smoked Physical Exam Const: COMMON NORMALS: no acute distress, healthy appearing and alert; negative for patient oriented x3 ORIENTATION/CONSCIOUSNESS: Yes oriented to person and Yes oriented to place; not oriented to time HENMT: COMMON NORMALS: normocephalic and atraumatic HEAD & SCALP: normocephalic and atraumatic Eye: COMMON NORMALS: Equal, round and reactive pupils present and EOMs intact bilaterally PUPIL: Yes Equal, round and reactive pupils present Neck/C-Spine: COMMON NORMALS: full ROM and supple Chest: COMMONS NORMALS: normal inspection of the chest and normal palpation of entire chest wall Resp: COMMON NORMALS: normal respiratory effort, No retractions, No use of accessory muscles and clear to auscultation bilaterally AUSCULTATION: clear to auscultation bilaterally Cardio: COMMON NORMALS: regular rate, regular rhythm and No murmurs present (Cardio) RATE: regular rate RHYTHM: regular rhythm GI: COMMON NORMALS: Normal to inspection, nondistended, normoactive bowel sounds present, Soft to palpation, non-tender and no masses PALPATION: Yes Soft to palpation Extremity: NARRATIVE EXTREMITY EXAM: Swelling along with tenderness to right ankle distal pulses intact no knee pain or hip pain Neuro: COMMON NORMALS: moves all extremities and no focal motor deficits; negative for patient oriented x3 SENSORIUM/ORIENTATION: Yes alert, Yes oriented to person, Yes oriented to place and No oriented to time Psych: COMMON NORMALS: mental status grossly normal, Normal thought process present and cooperative THOUGHT PROCESS: Normal thought process present Skin: COMMON NORMALS: no rashes or lesions noted and no wounds GENERAL SKIN EXAM: no rashes or lesions noted Course Vital Signs: Vital signs: Vital Signs Temperature 97.9 F 02/01/22 05:30 Pulse Rate 74 02/01/22 06:38 Respiratory Rate 18 02/01/22 06:38 Blood Pressure 150/75 02/01/22 06:38 Pulse Oximetry 95 02/01/22 06:38 MDM - Fall Medical Decision Making Patient presents here with a distal fibular fracture from a fall he has no other signs of injury patient placed in a splint and is to follow-up with orthopedics he is return if worsening understand agree to plan. Lab Data Radiology Impressions Ankle X-Ray 02/01/22 05:28 IMPRESSION: Displaced distal fibular fracture with overlying soft tissue edema. Discharge Plan Discharge Patient Disposition: Home Clinical Impression: Ankle fracture, right Qualifiers: Encounter type: initial encounter Fracture type: closed Qualified Code(s): S82.891A - Other fracture of right lower leg, initial encounter for closed fracture Condition: Stable Prescriptions: New hydrocodone-acetaminophen 5-325 mg tablet 1 tab PO Q6H PRN (Reason: pain) Qty: 14 0RF No Action aspirin 325 mg tablet 325 mg PO DAILY 0RF multivitamin Capsule 1 cap PO DAILY 0RF hydrocodone-acetaminophen [[place]] 5-325 mg tablet 1 tab PO BID PRN (Reason: Pain) 0RF amitriptyline 25 mg tablet See Rx Instructions .ROUTE .COMPLEX Qty: 90 3RF Dose Instruction: TAKE 1 TABLET BY MOUTH EVERY DAY Rx Instructions: TAKE 1 TABLET BY MOUTH EVERY DAY venlafaxine 75 mg capsule,extended release 24hr See Rx Instructions .ROUTE .COMPLEX Qty: 30 0RF Dose Instruction: TAKE 1 CAPSULE BY MOUTH EVERY DAY MUST MAKE APPOINTMENT FOR FUTURE REFILLS Rx Instructions: TAKE 1 CAPSULE BY MOUTH EVERY DAY MUST MAKE APPOINTMENT FOR FUTURE REFILLS clopidogrel 75 mg tablet See Rx Instructions .ROUTE .COMPLEX Qty: 30 1RF Dose Instruction: TAKE 1 TABLET BY MOUTH EVERY DAY *need TO see doctor* Rx Instructions: TAKE 1 TABLET BY MOUTH EVERY DAY *need TO see doctor* lamotrigine [Subvenite] 200 mg tablet See Rx Instructions .ROUTE .COMPLEX Qty: 180 0RF Dose Instruction: TAKE 1 TABLET BY MOUTH TWICE DAILY Rx Instructions: TAKE 1 TABLET BY MOUTH TWICE DAILY rosuvastatin 40 mg tablet 40 mg PO DAILY 0RF oxycodone 5 mg tablet 5 mg PO Q6H PRN (Reason: pain) Qty: 14 0RF Miralax 17 gram/dose powder 17 g PO DAILY Qty: 119 0RF Rx Instructions: While taking opioids (oxycodone) Discharge Orders: Discharge ED (Routine); Ordered 02/01/22 Ordered By: Jacob Andino Other Ambulatory Orders: DME: Wheelchair (Order) Location: None Selected Ordered By: Jacob Andino Referrals: Oscar Harley MD [Physician] - 1-3 days Rich Sotelo DO [Primary Care Provider] - Discharge Diet: Advance as tolerated Discharge Activity: Resume usual activity Patient Instructions: Ankle Fracture (ED), Opioid Safety Coding Level of Care Code ED Certified Surgical Tech/First Assistant for Chg Fwd Exam Comprehensive
[2022-02-01] MEDS: HYDROcodone-acetaminophen 5-325 mg Tablet 1 TAB PO (05:59)
[2022-02-01 06:38] VITALS: BP 150/75; PULSE 74; RESP 18; O2SAT 95
--- NOTE | 2022-02-01 07:37 | DCPLANNER ---
Addendum entered by Madison Loyola 03/02/22 11:51: Patient had a follow up appointment scheduled for 02.02.22 with ortho - patient did attend appointment. Addendum entered by Madison Loyola 02/02/22 14:09: Patient has a follow up appointment scheduled for Wednesday February 02, 2022 at 3:[address] Harley at ortho. Clinic will call patient with appointment information. Original Note: restaurant manager had message to schedule a follow up appointment for patient with ortho. restaurant manager sent patients information to the front office staff at ortho. Patients information will be printed and reviewed. Clinic will call patient with appointment information.
== END 2022-02-01 06:39 | disposition home or self-care (01) ==
PROVIDERS: Emergency Provider Emergency Medicine; PCP Internal Medicine
DX: S82.831A Other fracture of upper and lower end of right fibula, initial encounter for closed fracture (principal); Z79.82 Long term (current) use of aspirin; Z79.02 Long term (current) use of antithrombotics/antiplatelets; Z86.73 Personal history of transient ischemic attack (TIA), and cerebral infarction without residual deficits; F03.90 Unspecified dementia, unspecified severity, without behavioral disturbance, psychotic disturbance, mood disturbance, and anxiety; W19.XXXA Unspecified fall, initial encounter
CPT/HCPCS: 29515; 73610; 99283

== ENCOUNTER → 2022-02-02 15:27 | Outpatient (BNVA) | payer MEDICARE, OTHER, SELFPAY | PROVIDERS: PCP Internal Medicine; Visit Provider Orthopaedic Surgery | DX: X58.XXXA Exposure to other specified factors, initial encounter (principal); S82.831A Other fracture of upper and lower end of right fibula, initial encounter for closed fracture | CPT/HCPCS: 27786; 99203 ==

== ENCOUNTER 2022-02-19 08:11 | Emergency (ER) | payer MEDICARE, OTHER, SELFPAY ==
--- NOTE | 2022-02-19 08:14 | CTR_ITS ---
PROCEDURE INFORMATION: Exam: CT Cervical Spine Without Contrast Exam date and time: 02/19/2022 8:31 AM Age: 76 years old Clinical indication: Injury or trauma; Fall; Blunt trauma TECHNIQUE: Imaging protocol: Computed tomography of the cervical spine without contrast. Radiation optimization: All CT scans at this facility use at least one of these dose optimization techniques: automated exposure control; mA and/or kV adjustment per patient size (includes targeted exams where dose is matched to clinical indication); or iterative reconstruction. COMPARISON: CT cervical spin wo con* [id number] 11/26/2021 2:30 AM RADIATION DOSE METRICS: Total DLP (mGy-cm): 259.9 FINDINGS: Bones/joints: No acute fracture. Normal alignment. Discs/Spinal canal/Neural foramina: Chronic degenerative changes are present with disc space narrowing sclerosis and vertebral body osteophytes especially at the C5-C6 and C6-C7 levels. There is moderate spinal stenosis and left neural foraminal narrowing at these levels. Is bilateral facet joint degenerative disease. No severe spinal canal stenosis. Lungs: Lung apices are normal. Vasculature: Bilateral carotid artery calcification. Soft tissues: Unremarkable. CT/CT cervical spin wo con* [id number] IMPRESSION: 1. No acute abnormality. 2. Chronic degenerative disease especially at C5-C6 and C6-C7.
--- NOTE | 2022-02-19 08:14 | CTR_ITS ---
PROCEDURE INFORMATION: Exam: CT Maxillofacial Without Contrast Exam date and time: 02/19/2022 8:31 AM Age: 76 years old Clinical indication: Injury or trauma; Fall; Blunt trauma (contusions or hematomas); Nose TECHNIQUE: Imaging protocol: Computed tomography of the of the face without contrast. Radiation optimization: All CT scans at this facility use at least one of these dose optimization techniques: automated exposure control; mA and/or kV adjustment per patient size (includes targeted exams where dose is matched to clinical indication); or iterative reconstruction. COMPARISON: CT head wo con* [id number] 11/26/2021 2:27 AM RADIATION DOSE METRICS: Total DLP (mGy-cm): 669 FINDINGS: Orbital cavities: Orbits are normal. Globes are unremarkable. Bones/joints: There is a fracture of the distal nasal bone with about 2 mm of depression. A nondisplaced fracture is present at the tip of the maxillary spine. Paranasal sinuses: Normal. No air-fluid levels. Soft tissues: There is a small subcutaneous hematoma with subcutaneous emphysema over the frontal bone. CT/CT facial bones wo con* [id number] IMPRESSION: Mildly displaced fracture of the distal nasal bone and nondisplaced chip fracture of the anterior maxillary spine.
--- NOTE | 2022-02-19 08:14 | CTR_ITS ---
PROCEDURE INFORMATION: Exam: CT Head Without Contrast Exam date and time: 02/19/2022 8:31 AM Age: 76 years old Clinical indication: Injury or trauma; Fall; Blunt trauma (contusions or hematomas); Patient HX: History of stroke TECHNIQUE: Imaging protocol: Computed tomography of the head without contrast. Radiation optimization: All CT scans at this facility use at least one of these dose optimization techniques: automated exposure control; mA and/or kV adjustment per patient size (includes targeted exams where dose is matched to clinical indication); or iterative reconstruction. COMPARISON: CT head wo con* [id number] 11/26/2021 2:27 AM RADIATION DOSE METRICS: Total DLP (mGy-cm): 1161.3 FINDINGS: Brain: See Vasculature finding. Cerebral ventricles: See Vasculature finding. Paranasal sinuses: Visualized sinuses are unremarkable. No fluid levels. Mastoid air cells: Visualized mastoid air cells are well aerated. Bones/joints: Unremarkable. No acute fracture. Soft tissues: See Vasculature finding. Vasculature: There is a large old infarct in the distribution of the left middle cerebral artery. There is generalized chronic atrophy with prominence of the ventricles and sulci. There is decreased white matter density which indicates chronic small vessel white matter ischemia. No intracranial hemorrhage, edema or other acute abnormalities are seen in the brain. There is no mass effect or midline shift. There is a small subcutaneous hematoma over the frontal bone. Subcutaneous emphysema is present above the nose. CT/CT head wo con* [id number] IMPRESSION: No acute intracranial abnormality.
--- NOTE | 2022-02-19 08:15 | W.ED.FALL ---
HPI - Fall General: Chief Complaint: Fall Stated Complaint: LAC TO BRIDEGE OF NOSE S/P FALL Time Seen by Provider: 02/19/22 08:12 Source: patient and EMS Mode of arrival: EMS Limitations: no limitations History of Present Illness: 76-year-old male who states that he is here from senior care with EMS he states that he tripped this morning fell into a chair he did hit his head has a contusion to his head and nose he had some slight neck pain to he states his facial pain is a 6 out of 10 denies any other injuries at this time. Denies any loss of consciousness. Associated symptoms-after fall: Reports headache(s) and neck pain; Denies abdominal pain or chest pain Review of Systems Const: Denies: fever(s), chills, body aches or change in appetite Eyes: Denies: blurry vision or eye discomfort ENMT: Reports: sinus pain Card: Denies: chest pain Resp: Denies: dyspnea GI: Denies: abdominal pain, nausea, vomiting or diarrhea : Denies: dysuria Musc: Reports: neck pain Skin/Breast: Denies: rash Neuro: Reports: headache(s) Psych: Denies: depression Herberth/Lymph: Denies: easy bruising All/Imm: Denies: urticaria PFSH ED PFSH: Medical History Aphasia as late effect of stroke CVA (cerebral vascular accident) 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 Family History Other CAD (coronary artery disease) Stroke Social History Smoking and tobacco status: never smoked Physical Exam Const: COMMON NORMALS: no acute distress and patient oriented x3 HENMT: COMMON NORMALS: normocephalic HEAD & SCALP: normocephalic OTHER: Contusion to forehead along with swelling to the bridge of the nose superficial laceration noted no bleeding at this time Eye: COMMON NORMALS: Equal, round and reactive pupils present and EOMs intact bilaterally PUPIL: Yes Equal, round and reactive pupils present Neck/C-Spine: COMMON NORMALS: full ROM and supple Chest: COMMONS NORMALS: normal inspection of the chest and normal palpation of entire chest wall Resp: COMMON NORMALS: normal respiratory effort, No retractions, No use of accessory muscles and clear to auscultation bilaterally AUSCULTATION: clear to auscultation bilaterally Cardio: COMMON NORMALS: regular rate, regular rhythm and No murmurs present (Cardio) RATE: regular rate RHYTHM: regular rhythm GI: COMMON NORMALS: Normal to inspection, nondistended, normoactive bowel sounds present, Soft to palpation, non-tender and no masses PALPATION: Yes Soft to palpation Extremity: COMMON NORMALS: normal to inspection and full ROM Neuro: COMMON NORMALS: patient oriented x3, moves all extremities and no focal motor deficits Psych: COMMON NORMALS: mental status grossly normal, Normal thought process present and cooperative THOUGHT PROCESS: Normal thought process present Skin: COMMON NORMALS: no rashes or lesions noted and no wounds GENERAL SKIN EXAM: no rashes or lesions noted Course Vital Signs: Vital signs: Vital Signs Pulse Rate 82 02/19/22 08:25 Blood Pressure 143/87 02/19/22 08:25 Pulse Oximetry 100 02/19/22 08:25 Oxygen Delivery Me thod 02/19/22 08:25 MDM - Fall Medical Decision Making Patient presents with a nasal fracture from a fall CT shows the fracture CT of his head and neck are normal he does have a superficial abrasion to his nose does not require any sutures or Dermabond we will get him follow-up with ENT he is return if worsening he understands agrees to plan. Lab Data Radiology Impressions Cervical Spine CT 02/19/22 08:14 IMPRESSION: 1. No acute abnormality. 2. Chronic degenerative disease especially at C5-C6 and C6-C7. Face CT 02/19/22 08:14 IMPRESSION: Mildly displaced fracture of the distal nasal bone and nondisplaced chip fracture of the anterior maxillary spine. Head CT 02/19/22 08:14 IMPRESSION: No acute intracranial abnormality. Discharge Plan Discharge Patient Disposition: Home Clinical Impression: Fracture, nasal Qualifiers: Encounter type: initial encounter Fracture type: closed Qualified Code(s): S02.2XXA - Fracture of nasal bones, initial encounter for closed fracture Condition: Stable Prescriptions: No Action aspirin 325 mg tablet 325 mg PO DAILY multivitamin Capsule 1 cap PO DAILY hydrocodone-acetaminophen [[place]] 5-325 mg tablet 1 tab PO BID PRN (Reason: Pain) amitriptyline 25 mg tablet See Rx Instructions .ROUTE .COMPLEX Qty: 90 3RF Dose Instruction: TAKE 1 TABLET BY MOUTH EVERY DAY Rx Instructions: TAKE 1 TABLET BY MOUTH EVERY DAY venlafaxine 75 mg capsule,extended release 24hr See Rx Instructions .ROUTE .COMPLEX Qty: 30 0RF Dose Instruction: TAKE 1 CAPSULE BY MOUTH EVERY DAY MUST MAKE APPOINTMENT FOR FUTURE REFILLS Rx Instructions: TAKE 1 CAPSULE BY MOUTH EVERY DAY MUST MAKE APPOINTMENT FOR FUTURE REFILLS clopidogrel 75 mg tablet See Rx Instructions .ROUTE .COMPLEX Qty: 30 1RF Dose Instruction: TAKE 1 TABLET BY MOUTH EVERY DAY *need TO see doctor* Rx Instructions: TAKE 1 TABLET BY MOUTH EVERY DAY *need TO see doctor* lamotrigine [Subvenite] 200 mg tablet See Rx Instructions .ROUTE .COMPLEX Qty: 180 0RF Dose Instruction: TAKE 1 TABLET BY MOUTH TWICE DAILY Rx Instructions: TAKE 1 TABLET BY MOUTH TWICE DAILY rosuvastatin 40 mg tablet 40 mg PO DAILY oxycodone 5 mg tablet 5 mg PO Q6H PRN (Reason: pain) Qty: 14 0RF Miralax 17 gram/dose powder 17 g PO DAILY Qty: 119 0RF Rx Instructions: While taking opioids (oxycodone) hydrocodone-acetaminophen 5-325 mg tablet 1 tab PO Q6H PRN (Reason: pain) Qty: 14 0RF Discharge Orders: Discharge ED (Routine); Ordered 02/19/22 Ordered By: Jacob Andino Referrals: Joao Wilhelm MD [Physician] - 1-3 days Rich Sotelo DO [Primary Care Provider] - Discharge Diet: Advance as tolerated Discharge Activity: Resume usual activity Patient Instructions: Nasal Fracture (ED) Coding Level of Care Code ED Guest Service Supervisor for Sam Fwd Exam Comprehensive
[2022-02-19 08:25] VITALS: BP 143/87; PULSE 82; O2SAT 100; BMI 21.4
[2022-02-19 09:57] VITALS: BP 142/90; PULSE 83; O2SAT 97
--- NOTE | 2022-02-22 09:21 | DCPLANNER ---
Addendum entered by Madison Loyola 03/09/22 15:56: Patient had a follow up appointment scheduled with ENT - appointment was cancelled. Original Note: mission manager had message to schedule a follow up appointment for patient with ENT. mission manager sent patients information to the front office staff at ENT. Patients information will be printed and reviewed. Clinic will call patient with appointment information.
== END 2022-02-19 09:59 | disposition home or self-care (01) ==
PROVIDERS: Emergency Provider Emergency Medicine; PCP Internal Medicine
DX: S02.2XXA Fracture of nasal bones, initial encounter for closed fracture (principal); Z79.82 Long term (current) use of aspirin; Z79.02 Long term (current) use of antithrombotics/antiplatelets; Z86.73 Personal history of transient ischemic attack (TIA), and cerebral infarction without residual deficits; W01.198A Fall on same level from slipping, tripping and stumbling with subsequent striking against other object, initial encounter
CPT/HCPCS: 70450; 70486; 72125; 99284

== ENCOUNTER → 2022-03-02 15:13 | Outpatient (BNVA) | payer MEDICARE, OTHER, SELFPAY | PROVIDERS: PCP Internal Medicine; Visit Provider Orthopaedic Surgery | DX: X58.XXXA Exposure to other specified factors, initial encounter (principal); S82.899A Other fracture of unspecified lower leg, initial encounter for closed fracture | CPT/HCPCS: 73610; 99024 ==

== ENCOUNTER → 2022-03-23 14:31 | Outpatient (BNVA) | payer MEDICARE, OTHER, SELFPAY | PROVIDERS: PCP Internal Medicine; Visit Provider Orthopaedic Surgery | DX: X58.XXXA Exposure to other specified factors, initial encounter (principal); S82.831A Other fracture of upper and lower end of right fibula, initial encounter for closed fracture | CPT/HCPCS: 73610; 99024 ==

== ENCOUNTER 2023-08-31 00:19 | Inpatient (IN) | payer MEDICARE, OTHER, SELFPAY ==
[2023-08-31] VITALS (10 sets, daily range): BP systolic 159–187; BP diastolic 88–101; PULSE 64–159; RESP 17–27; TEMP 36.1; O2SAT 93–100; BMI 27.6
--- NOTE | 2023-08-31 00:21 | CTR_ITS ---
PROCEDURE INFORMATION: Exam: CT Head Without Contrast Exam date and time: 08/31/2023 12:20 AM Age: 78 years old Clinical indication: Stroke-like symptoms; Altered mental status/memory loss; Additional info: Stroke alert TECHNIQUE: Imaging protocol: Computed tomography of the head without contrast. Radiation optimization: All CT scans at this facility use at least one of these dose optimization techniques: automated exposure control; mA and/or kV adjustment per patient size (includes targeted exams where dose is matched to clinical indication); or iterative reconstruction. Other technique: STROKE PROTOCOL was implemented. COMPARISON: CT head wo con* [id number] 02/19/2022 8:31 AM RADIATION DOSE METRICS: Total DLP (mGy-cm): 1089 FINDINGS: Brain: Large hyperacute right-sided subdural hematoma measures about 2.9 cm thick. This causes a severe leftward midline shift of about 2.8 cm. Old large left hemispheric encephalomalacia. Moderate age-related changes. Cerebral ventricles: No evidence of acute hydrocephalus. There is severe right LV compression. This patient is at increased risk for both herniation and hydrocephalus. Paranasal sinuses: The partially assessed sinuses are grossly clear. Mastoid air cells: Visualized mastoid air cells are well aerated. Bones/joints: No displaced skull fracture is noted. Soft tissues: Unremarkable. Vasculature: Advanced diffuse vascular calcification noted. CT/CT head wo con* [id number] IMPRESSION: 1. Very large acute right-sided subdural hematoma causes critical leftward midline shift. Advise emergent neurosurgical consultation. 2. THIS REPORT CONTAINS FINDINGS THAT MAY BE CRITICAL TO PATIENT CARE. The findings were verbally communicated via telephone conference at 12:33 AM CYTOGENETICS LABORATORY MANAGER on 08/31/2023 with ORLY Lopez. The findings were acknowledged and understood. ASSESSMENT: ASPECTS ([place] Stroke Program Early CT Score) is 10.
--- NOTE | 2023-08-31 00:41 | W.ED.NEUROSD ---
HPI - Neuro Symptoms/Deficit General: Chief Complaint: Neuro Symptoms/Deficit Stated Complaint: possible stroke Time Seen by Provider: 08/31/23 00:25 History of Present Illness: 78-year-old male presents to the emergency department via EMS. EMS personnel state that the patient was last seen at his baseline at approximately 2135. The family states that they noted that he fell and then they went to [facility] and when they returned the patient was unresponsive. The patient has a history of seizures and also previous CVA in 2019. Patient does have snoring respirations and per the family members his son and lvaflaie-ch-hat who is a nurse practitioner have advised that the patient recently expressed to them that he did not want life-sustaining measures if something were to happen to him and that he wanted to be made comfort measures only and is a DNR. I did advise the family members that he was actively having a seizure and they did request the patient receive antiepileptic medication. 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 With snoring respiration at present vital signs reviewed as documented. HENMT: Normocephalic, atraumatic. External ears normal appearance without drainage. Nose without drainage, normal appearance. Mucus membranes moist. Patient's right pupil is 5 mm and dilated and sluggish to light, left pupil is 3 mm. Neck is supple, No jugular venous distension, trachea is midline, no appreciable carotid bruits. No lymphadenopathy. Eyes: Right pupil 5 mm and dilated sluggish to response left pupil 3 mm. No scleral icterus. . Thorax is symmetrical and with equal rise and fall with respirations. Resp: Decreased bilaterally in the bases. Cardio: Tachycardic and hypertensive positive S1, S2. No appreciable murmurs, rubs or gallops. GI: Abdominal exam reveals normal bowel sounds to all quadrants. . Soft, non-tender to palpation. Extremity: Extremities are non-edematous and both femoral and pedal pulses are 2+ and equal bilaterally. Moves all extremities well, sensation in all extremities. Neuro: Unresponsive, decorticate posturing with seizure activity noted. GCS 3. Skin: No lesions, rashes. No gross abnormalities noted. Back: Symmetrical, no obvious deformity Course Vital Signs: Vital signs: Vital Signs Temperature 96.9 F L 08/31/23 00:23 Pulse Rate 64 08/31/23 01:15 Respiratory Rate 23 H 08/31/23 01:15 Blood Pressure 159/98 08/31/23 01:15 Pulse Oximetry 94 08/31/23 01:15 Oxygen Delivery Me thod Nasal Cannula 08/31/23 02:53 MDM - Neuro Symptoms/Deficit Medical Decision Making Physical exam completed and documented CT scan of the head was done and demonstrated significant intracranial injury I have discussed with the family members and they have advised that the patient is a DO NOT RESUSCITATE and would want comfort measures only. I did speak with Dr. Pandey the neurologist when the patient first came to the emergency department. Medical Records I reviewed the patient's medical records. Lab Data I reviewed the patient's lab results. 08/31/23 00:40 08/31/23 00:[address] 08/31/23 00:21 IMPRESSION: 1. Very large acute right-sided subdural hematoma causes critical leftward midline shift. Advise emergent neurosurgical consultation. 2. THIS REPORT CONTAINS FINDINGS THAT MAY BE CRITICAL TO PATIENT CARE. The findings were verbally communicated via telephone conference at 12:33 AM AUTOMOTIVE CUSTOMER EXPERIENCE ADVISOR on 08/31/2023 with RESPIRATORY THERAPIST Donnell Lopez. The findings were acknowledged and understood. ASSESSMENT: ASPECTS ([place] Stroke Program Early CT Score) is 10. Laboratory Results WBC 15.56 10^3/uL (3.29-11.43) H 08/31/23 00:40 RBC 4.85 10^6/uL (3.85-5.65) 08/31/23 00:40 Hgb 15.10 g/dL (11.27-16.99) 08/31/23 00:40 Hct 45.6 % (37-53) 08/31/23 00:40 MCV 94.0 fl (82-101) 08/31/23 00:40 MCH 31.1 pg (27-33) 08/31/23 00:40 MCHC 33.1 g/dL (30-55) 08/31/23 00:40 RDW 12.5 % (12.1-15.1) 08/31/23 00:40 Plt Count 212 10^3/cmm (157-399) 08/31/23 00:40 MPV 9.2 fL (7.4-10.4) 08/31/23 00:40 Neut % (Auto) 73.5 % 08/31/23 00:40 Lymph % (Auto) 19.7 % 08/31/23 00:40 [place] % (Auto) 5.2 % 08/31/23 00:40 Eos % (Auto) 0.6 % 08/31/23 00:40 Baso % (Auto) 0.4 % 08/31/23 00:40 Neut # (Auto) 11.44 10^3/uL (1.8-7.7) H 08/31/23 00:40 Lymph # (Auto) 3.1 10^3/uL (0.8-4.8) 08/31/23 00:40 [place] # (Auto) 0.8 10^3/uL (0.2-0.9) 08/31/23 00:40 Eos # (Auto) 0.1 10^3/uL (0.0-0.8) 08/31/23 00:40 Baso # (Auto) 0.1 10^3/uL (0.0-0.1) 08/31/23 00:40 Nucleated RBC % (auto) 0 % 08/31/23 00:40 Nucleated RBCs # 0.0 /100WBC 08/31/23 00:40 PT 13.60 SECONDS (12.1-14.9) 08/31/23 00:40 INR 1.01 (0.8-1.2) 08/31/23 00:40 APTT 26.4 SECONDS (23.9-36.7) 08/31/23 00:40 Sodium 138 mmol/L (136-145) 08/31/23 00:40 Potassium 4.3 mmol/L (3.5-5.1) 08/31/23 00:40 Chloride 98 mmol/L (98-107) 08/31/23 00:40 Carbon Dioxide 25 mmol/L (22-29) 08/31/23 00:40 Anion Gap 19.3 (5-19) H 08/31/23 00:40 BUN 16 mg/dL (8-23) 08/31/23 00:40 Creatinine 1.0 mg/dL (0.7-1.2) 08/31/23 00:40 GFR Calculation Not Reportable 08/31/23 00:40 Glucose 169 mg/dL (65-115) H 08/31/23 00:40 Calculated Osmolality 291 mOsm/kg (285-295) 08/31/23 00:40 Calcium 9.1 mg/dL (8.5-10.5) 08/31/23 00:40 Total Bilirubin 0.6 mg/dL (0.15-1.2) 08/31/23 00:40 AST 22 U/L (0-40) 08/31/23 00:40 ALT 16 U/L (0-41) 08/31/23 00:40 Alkaline Phosphatase 120 U/L (40-130) 08/31/23 00:40 Total Protein 7.4 g/dL (6.6-8.7) 08/31/23 00:40 Albumin 4.3 g/dL (3.5-5.2) 08/31/23 00:40 Globulin 3.1 g/dL (1.3-4.6) 08/31/23 00:40 All radiology interpretation(s) finalized by discharge Discharge Plan Discharge Patient Disposition: Admitted As Inpatient Admit Provider: Jing Santos Clinical Impression: Acute subdural hematoma, Accidental fall, Admission for end of life care Condition: Stable Coding Level of Care Code ED Work Order Detailer for Satishg Fwlashell
[2023-08-31] MEDS: levETIRAcetam 1,000 MG/100 ML PREMIX 400 MG IV (00:42)
[2023-08-31] MEDS: morphine 4 mg/mL SDV 1 mL IVP ×3 (00:53→06:11)
[2023-08-31] MEDS: LORazepam 2 mg/mL INJ 10 mL MDV 1 MG IVP (00:54)
[2023-08-31] MEDS: ondansetron 2 mg/ML SDV 2 mL 8 MG IVP (01:04)
[2023-08-31 01:09] LABS: Basophils # 0.1 10^3/uL (0.0-0.1); Basophils % 0.4 %; Eosinophils # 0.1 10^3/uL (0.0-0.8); Eosinophils % 0.6 %; Hematocrit 45.6 % (37-53); Lymphocytes # 3.1 10^3/uL (0.8-4.8); Lymphocytes % 19.7 %; Mean Corpuscular HGB Conc 33.1 g/dL (30-55); Mean Corpuscular Hemoglobin 31.1 pg (27-33); Mean Platelet Volume 9.2 fL (7.4-10.4); Monocytes # 0.8 10^3/uL (0.2-0.9); Monocytes % 5.2 %; Neutrophils # 11.44 10^3/uL (1.8-7.7); Neutrophils % 73.5 %; Nucleated Red Blood Cells % 0 %; Platelet Count 212 10^3/cmm (157-399); Red Blood Count 4.85 10^6/uL (3.85-5.65); Red Cell Distribution Width 12.5 % (12.1-15.1); White Blood Count 15.56 10^3/uL (3.29-11.43)
[2023-08-31 01:18] LABS: INR 1.01 (0.8-1.2)
[2023-08-31 01:19] LABS: Partial Thromboplastin Time 26.4 SECONDS (23.9-36.7)
[2023-08-31 01:28] LABS: Alanine Aminotransferase 16 U/L (0-41); Albumin Level 4.3 g/dL (3.5-5.2); Alkaline Phosphatase 120 U/L (40-130); Anion Gap 19.3 (5-19); Aspartate Amino Transferase 22 U/L (0-40); Blood Urea Nitrogen 16 mg/dL (8-23); Calcium 9.1 mg/dL (8.5-10.5); Carbon Dioxide 25 mmol/L (22-29); Chloride 98 mmol/L (98-107); Creatinine Clr Calc Pharmacy 66.7757; Globulin 3.1 g/dL (1.3-4.6); Glucose 169 mg/dL (65-115); Osmolality Calculated 291 mOsm/kg (285-295); Potassium 4.3 mmol/L (3.5-5.1); Sodium 138 mmol/L (136-145); Total Bilirubin 0.6 mg/dL (0.15-1.2); Total Protein 7.4 g/dL (6.6-8.7)
--- NOTE | 2023-08-31 01:45 | PC.NURSE ---
Report was called to Junie ABRAMS on [place]. Patient was transferred with family, as well as all paperwork and belongings.
--- NOTE | 2023-08-31 01:51 | PC.NURSE ---
Yumiko ABRAMS and Courtney ABRAMS wasted versed, succs, and fentanyl at [facility] per instruction of Dr River.
--- NOTE | 2023-08-31 02:01 | PM.HP ---
Providers/Chief Complaint Admitting Physician: Jing Santos MD Primary Care Provider: Rich Sotelo DO Chief Complaint: possible stroke History of Present Illness Juan Carlos Canales is a 78 year old male with a history of stroke, generalized epilepsy, history of recurrent falls who presented to the hospital today with altered mental status. It appears patient may have fallen at home as recently as today, when family returned from [place] they found him to be unresponsive. He was brought into the emergency room where CAT scan of the brain showed a very large acute right-sided subdural hematoma causing leftward midline shift. Patient had previously discussed his goals of care with his family extensively and was clear about not having any resuscitative or surgical measures in case of a life-threatening situation such as this. Family declined neurosurgical intervention and excepted to proceed with comfort care measures based on his previously expressed wishes. Patient is being admitted to the hospital for comfort care management. He has been noted to have seizures in the emergency room for which she received a loading dose of Keppra 1 g. Typically he takes lamotrigine at home for a known history of seizure disorder. Review of Systems General: Reports: ROS unobtainable due to medical condition Medications/Allergies Home Medications Medication Instructions Recorded Confirmed Last Taken Type aspirin 325 mg tablet 325 mg PO DAILY 12/09/19 03/23/22 04/15/20 History hydrocodone 5 mg-acetaminophen 325 1 tab PO BID PRN Pain 12/09/19 03/23/22 Unknown History mg tablet ([place]) multivitamin 1 cap PO DAILY 12/09/19 03/23/22 04/15/20 History rosuvastatin 40 mg tablet 40 mg PO DAILY 04/16/20 03/23/22 04/15/20 History amitriptyline 25 mg tablet See Rx Instructions .Route 02/15/21 03/23/22 Unknown Rx .COMPLEX #90 tabs venlafaxine 75 mg capsule,extended See Rx Instructions .Route 09/06/21 03/23/22 Unknown Rx release 24 hr .COMPLEX #30 caps oxycodone 5 mg tablet 5 mg PO Q6H PRN pain #14 tabs 11/26/21 03/23/22 Unknown Rx polyethylene glycol 3350 17 17 g PO DAILY #119 grams 11/26/21 03/23/22 Unknown Rx gram/dose oral powder (Miralax) hydrocodone 5 mg-acetaminophen 325 1 tab PO Q6H PRN pain #14 tabs 02/01/22 03/23/22 Unknown Rx mg tablet clopidogrel 75 mg tablet See Rx Instructions .Route 04/11/22 Unknown Rx .COMPLEX #30 tabs lamotrigine 200 mg tablet See Rx Instructions .Route 07/12/22 Unknown Rx .COMPLEX #180 tabs Allergies Allergy/AdvReac Type Severity Reaction Status Date / Time No Known Allergies Allergy Verified 08/31/23 00:34 PFSH Acute PFSH: Medical History Generalized epilepsy CVA (cerebral vascular accident) 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 Family History Other CAD (coronary artery disease) Stroke Social History Smoking and tobacco/nicotine status: never used tobacco/nicotine Vitals/I&O/Wt Last Vital Signs Temp 96.9 F L 08/31/23 00:23 Pulse 64 08/31/23 01:15 Resp 23 H 08/31/23 01:15 BP 159/98 08/31/23 01:15 Pulse Ox 94 08/31/23 01:15 O2 Del Method Room Air 08/31/23 00:35 08/30/23 08/30/23 08/31/23 14:59 22:59 06:59 Intake Total 100 / 100 Balance 100 / 100 Weight last 48 hrs Weight 87.543 kg Weight 87.543 kg Physical Exam Narrative: General: obtunded, unable to follow any commands, appears comfortable currently Detailed physical exam not performed in keeping with overall goals of comfort care management Data 08/31/23 00:40 08/31/23 00:40 Other Labs: Radiology Impressions Head CT 08/31/23 00:21 IMPRESSION: 1. Very large acute right-sided subdural hematoma causes critical leftward midline shift. Advise emergent neurosurgical consultation. 2. THIS REPORT CONTAINS FINDINGS THAT MAY BE CRITICAL TO PATIENT CARE. The findings were verbally communicated via telephone conference at 12:33 AM EXTENDED INSURANCE CLERK on 08/31/2023 with LABORATORY MECHANICAL TECHNICIAN Donnell Lopez. The findings were acknowledged and understood. ASSESSMENT: ASPECTS ([place] Stroke Program Early CT Score) is 10. Laboratory Results WBC 15.56 10^3/uL (3.29-11.43) H 08/31/23 00:40 RBC 4.85 10^6/uL (3.85-5.65) 08/31/23 00:40 Hgb 15.10 g/dL (11.27-16.99) 08/31/23 00:40 Hct 45.6 % (37-53) 08/31/23 00:40 MCV 94.0 fl (82-101) 08/31/23 00:40 MCH 31.1 pg (27-33) 08/31/23 00:40 MCHC 33.1 g/dL (30-55) 08/31/23 00:40 RDW 12.5 % (12.1-15.1) 08/31/23 00:40 Plt Count 212 10^3/cmm (157-399) 08/31/23 00:40 MPV 9.2 fL (7.4-10.4) 08/31/23 00:40 Neut % (Auto) 73.5 % 08/31/23 00:40 Lymph % (Auto) 19.7 % 08/31/23 00:40 [place] % (Auto) 5.2 % 08/31/23 00:40 Eos % (Auto) 0.6 % 08/31/23 00:40 Baso % (Auto) 0.4 % 08/31/23 00:40 Neut # (Auto) 11.44 10^3/uL (1.8-7.7) H 08/31/23 00:40 Lymph # (Auto) 3.1 10^3/uL (0.8-4.8) 08/31/23 00:40 [place] # (Auto) 0.8 10^3/uL (0.2-0.9) 08/31/23 00:40 Eos # (Auto) 0.1 10^3/uL (0.0-0.8) 08/31/23 00:40 Baso # (Auto) 0.1 10^3/uL (0.0-0.1) 08/31/23 00:40 Nucleated RBC % (auto) 0 % 08/31/23 00:40 Nucleated RBCs # 0.0 /100WBC 08/31/23 00:40 PT 13.60 SECONDS (12.1-14.9) 08/31/23 00:40 INR 1.01 (0.8-1.2) 08/31/23 00:40 APTT 26.4 SECONDS (23.9-36.7) 08/31/23 00:40 Sodium 138 mmol/L (136-145) 08/31/23 00:40 Potassium 4.3 mmol/L (3.5-5.1) 08/31/23 00:40 Chloride 98 mmol/L (98-107) 08/31/23 00:40 Carbon Dioxide 25 mmol/L (22-29) 08/31/23 00:40 Anion Gap 19.3 (5-19) H 08/31/23 00:40 BUN 16 mg/dL (8-23) 08/31/23 00:40 Creatinine 1.0 mg/dL (0.7-1.2) 08/31/23 00:40 GFR Calculation Not Reportable 08/31/23 00:40 Glucose 169 mg/dL (65-115) H 08/31/23 00:40 Calculated Osmolality 291 mOsm/kg (285-295) 08/31/23 00:40 Calcium 9.1 mg/dL (8.5-10.5) 08/31/23 00:40 Total Bilirubin 0.6 mg/dL (0.15-1.2) 08/31/23 00:40 AST 22 U/L (0-40) 08/31/23 00:40 ALT 16 U/L (0-41) 08/31/23 00:40 Alkaline Phosphatase 120 U/L (40-130) 08/31/23 00:40 Total Protein 7.4 g/dL (6.6-8.7) 08/31/23 00:40 Albumin 4.3 g/dL (3.5-5.2) 08/31/23 00:40 Globulin 3.1 g/dL (1.3-4.6) 08/31/23 00:40 A&P Assessment and plan (1) Acute subdural hematoma: Very large acute subdural hematoma with midline shift. Patient is currently obtunded, unresponsive. Per goals of care, no neurosurgical intervention Likely to be fatal event (2) Admission for end of life care: Admitted for comfort care management. As needed morphine and as needed Ativan as needed per comfort care protocol. Glycopyrrolate 0.2 mg IV every 4 hours for secretions. As needed Ativan for breakthrough seizures. Plan no DVT ppx as comfort care DNR/DNI Attestations Medical Necessity Statement*: anticipate 2 midnight stay Coding Level of Care Code Acute Code for Chg Fwd Moderate MDM includes number and complexity of problems actively addressed during encounter, amount and/or complexity of data reviewed/ordered and described risk of complication, morbidity or mortality of management as documented Diagnoses Acute subdural hematoma S06.5XAA Admission for end of life care Z51.5
[2023-08-31] MEDS: LORazepam 2 mg/mL INJ 10 mL MDV IVP ×2 (02:49→21:39)
[2023-08-31] MEDS: glycopyrrolate 0.2 mg/mL SDV 2 mL 0.200000000000000011 MG IV (04:12)
[2023-08-31] MEDS: atropine 1% op soln 2 mL Btl 3 DROP SUBLINGUAL ×2 (06:49→11:35)
[2023-08-31] MEDS: scopolamine 1.5 Patch 1 PATCH TRANSDERMA (09:43)
[2023-09-01 05:35] VITALS: BMI 27.1
--- NOTE | 2023-09-01 08:39 | PM.DCS ---
Discharge Providers Date of Admission: 08/31/23 01:08 Date of Discharge: September 01, 2023 Attending Provider at Admission: Jing Santos MD Attending Provider at Discharge: Merlyn Vera MD Primary Care Provider: Rich Sotelo DO Diagnoses at Discharge Discharge Diagnosis (1) Acute subdural hematoma: Status: Acute (2) Admission for end of life care: Status: Acute Reason for Visit Reason for Visit: possible stroke Hospital Course Hospital Course 78-year male who present to the hospital after sustaining a fall, he was diagnosed with significant subdural hematoma with midline shift, patient is not responding at all, family does not want to pursue surgical dimension, they are completely aware about the potential complications and risk of not pursuing surgical intervention, they have opted for hospice care and half-way placement. Physical Exam Narrative: Patient not responding, agonal breathing Significant upper airway secretions Urinary Catheter Management: Olivera: Cath Placed During This Visit: yes Reason for Continuing Indwelling Catheter: Hospice/Comfort/Palliative Care Urinary Catheter Date of Insertion: 08/31/23 Urinary Catheter Time of Insertion: 04:07 Discharge Data Studies Completed and Pending Completed Studies During Hospitalization Category Date Time Status CT head wo con* [id number] Stat Cat Scan 08/31/23 00:21 Completed Radiology Impressions Head CT 08/31/23 00:21 IMPRESSION: 1. Very large acute right-sided subdural hematoma causes critical leftward midline shift. Advise emergent neurosurgical consultation. 2. THIS REPORT CONTAINS FINDINGS THAT MAY BE CRITICAL TO PATIENT CARE. The findings were verbally communicated via telephone conference at 12:33 AM MEDICAL GENETICS DIRECTOR on 08/31/2023 with SENIOR SALES MANAGER Donnell Lopez. The findings were acknowledged and understood. ASSESSMENT: ASPECTS ([place] Stroke Program Early CT Score) is 10. Laboratory Results WBC 15.56 10^3/uL (3.29-11.43) H 08/31/23 00:40 RBC 4.85 10^6/uL (3.85-5.65) 08/31/23 00:40 Hgb 15.10 g/dL (11.27-16.99) 08/31/23 00:40 Hct 45.6 % (37-53) 08/31/23 00:40 MCV 94.0 fl (82-101) 08/31/23 00:40 MCH 31.1 pg (27-33) 08/31/23 00:40 MCHC 33.1 g/dL (30-55) 08/31/23 00:40 RDW 12.5 % (12.1-15.1) 08/31/23 00:40 Plt Count 212 10^3/cmm (157-399) 08/31/23 00:40 MPV 9.2 fL (7.4-10.4) 08/31/23 00:40 Neut % (Auto) 73.5 % 08/31/23 00:40 Lymph % (Auto) 19.7 % 08/31/23 00:40 [place] % (Auto) 5.2 % 08/31/23 00:40 Eos % (Auto) 0.6 % 08/31/23 00:40 Baso % (Auto) 0.4 % 08/31/23 00:40 Neut # (Auto) 11.44 10^3/uL (1.8-7.7) H 08/31/23 00:40 Lymph # (Auto) 3.1 10^3/uL (0.8-4.8) 08/31/23 00:40 [place] # (Auto) 0.8 10^3/uL (0.2-0.9) 08/31/23 00:40 Eos # (Auto) 0.1 10^3/uL (0.0-0.8) 08/31/23 00:40 Baso # (Auto) 0.1 10^3/uL (0.0-0.1) 08/31/23 00:40 Nucleated RBC % (auto) 0 % 08/31/23 00:40 Nucleated RBCs # 0.0 /100WBC 08/31/23 00:40 PT 13.60 SECONDS (12.1-14.9) 08/31/23 00:40 INR 1.01 (0.8-1.2) 08/31/23 00:40 APTT 26.4 SECONDS (23.9-36.7) 08/31/23 00:40 Sodium 138 mmol/L (136-145) 08/31/23 00:40 Potassium 4.3 mmol/L (3.5-5.1) 08/31/23 00:40 Chloride 98 mmol/L (98-107) 08/31/23 00:40 Carbon Dioxide 25 mmol/L (22-29) 08/31/23 00:40 Anion Gap 19.3 (5-19) H 08/31/23 00:40 BUN 16 mg/dL (8-23) 08/31/23 00:40 Creatinine 1.0 mg/dL (0.7-1.2) 08/31/23 00:40 GFR Calculation Not Reportable 08/31/23 00:40 Glucose 169 mg/dL (65-115) H 08/31/23 00:40 Calculated Osmolality 291 mOsm/kg (285-295) 08/31/23 00:40 Calcium 9.1 mg/dL (8.5-10.5) 08/31/23 00:40 Total Bilirubin 0.6 mg/dL (0.15-1.2) 08/31/23 00:40 AST 22 U/L (0-40) 08/31/23 00:40 ALT 16 U/L (0-41) 08/31/23 00:40 Alkaline Phosphatase 120 U/L (40-130) 08/31/23 00:40 Total Protein 7.4 g/dL (6.6-8.7) 08/31/23 00:40 Albumin 4.3 g/dL (3.5-5.2) 08/31/23 00:40 Globulin 3.1 g/dL (1.3-4.6) 08/31/23 00:40 Vitals Last Vital Signs Temp 96.9 F L 08/31/23 00:23 Pulse 64 08/31/23 09:43 Resp 22 H 08/31/23 04:11 BP 159/98 08/31/23 09:43 Pulse Ox 94 08/31/23 01:15 O2 Del Method Nasal Cannula 08/31/23 02:53 Discharge Plan Discharge Patient Disposition: Xfer SNF Condition: Stable Prescriptions: Discontinued aspirin 325 mg tablet 325 mg PO DAILY rosuvastatin 40 mg tablet 40 mg PO QPM Vitamin D3 50 mcg (2,000 unit) Tablet 50 mcg PO QAM venlafaxine 75 mg capsule,extended release 24hr 75 mg PO QAM lamotrigine 200 mg tablet 200 mg PO BID clopidogrel 75 mg tablet 75 mg PO QPM Referrals: Rich Sotelo DO [Primary Care Provider] - Discharge Attestations Time Spent in Discharge Care*: less than 30 min Quality Metrics Clinical Quality Measures [ No reported AMI, CVA or VTE this stay] Coding Level of Care Code Acute Code for Chg Fwd Diagnoses Acute subdural hematoma S06.5XAA Admission for end of life care Z51.5
--- NOTE | 2023-09-01 09:44 | PC.CHAP ---
Pastoral Care Encounter/Spiritual Assessment Type of Contact [] Declined wash and greaser visit [] Patient/Family/Request visit [] Outpatient visit [] Follow-up visit [] Physician referral [] Code/Alert [x] Routine visit [] Staff referral [] Actively dying [] Patient sleeping [x] Family support [] [] Out of room [] Palliative care [] [] Receiving care in room [] Pre-surgical visit [] Trauma [] Long length of stay [] ICU visit [] Other: Relational/Emotional Strength [x] Patient feels connected with others/family/visitors/staff [] Distress [] Loneliness/isolation [] Abandonment Spirituality of Patient [x] Person of Bina [] Attends Catholic of their Bina [] Believes in Prayer [] Reads Bible or Holiness materials [] There are Spiritual issues to be addressed Hand Surgeon Interventions [x] Prayer [x] Active listening [x] Non-anxious presence [x] Spiritual/emotional support [] Crisis/trauma care [] Spiritual counseling [] Bereavement support [] Provided bereavement packet [] Provided Bible/devotional materials [] Provided toy/stuffed animal, coloring book to patient or family member [] Provided Communion [] Anointing/[place] [] Salvation [x] Completed spiritual assessment [] Other: Impact on Illness or Injury [] Angry [] Fearful [] Anxious [] Often cries [] Exhaustion [] Unable to work [] Unable to attend yarsani [] Unable to walk/stand [] Unable to read [] Unable to drive [] Unable to eat/drink [] Unable to sleep [] Unable to be with family [] Patient intubated [] Other: Summary Time spent with patient 5 min
[2023-09-01 10:27] LABS: SARS Covid-2 Antigen negative (Negative)
[2023-09-01] MEDS: morphine 10 mg/0.5 mL oral liq UD SUBLINGUAL (11:29)
[2023-09-01 13:13] VITALS: BP 159/98; PULSE 64
== END 2023-09-01 12:45 | disposition hospice, inpatient (51) | DRG 84 ==
LOC: ER 00:58 → MEDSURG 01:08
PROVIDERS: Admitting Provider Student in an Organized Health Care Education/Training Program; Emergency Provider Internal Medicine; PCP Internal Medicine; Visit Provider Internal Medicine
DX: S06.5XAA Traumatic subdural hemorrhage with loss of consciousness status unknown, initial encounter (principal); W18.30XA Fall on same level, unspecified, initial encounter; Y92.89 Other specified places as the place of occurrence of the external cause; Z66 Do not resuscitate; Z51.5 Encounter for palliative care; R29.6 Repeated falls; G40.409 Other generalized epilepsy and epileptic syndromes, not intractable, without status epilepticus; I69.320 Aphasia following cerebral infarction
CPT/HCPCS: 51702; 70450; 80053; 85025; 85610; 85730; 87426; 96374; 96375; 99285; J1953; J2060; J2270; J2405; J3490